=== PATIENT | female | born 1975 | race Caucasian/White ===

== ENCOUNTER 2017-05-13 20:20 | Emergency (ER) | payer MEDICAID, SELFPAY ==
[2017-05-13 20:30] VITALS: BP 169/94
[2017-05-13] MEDS ORDERED: LORazepam 2 MG/ML MDV IVPUSH ONE (21:31)
[2017-05-13] MEDS ORDERED: Sodium Chloride 0.9% 10 ML Syringe FLUSH PRN (21:32)
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
[2017-05-13] MEDS ORDERED: Potassium Bicarbonate/Cit Ac 20 MEQ Effervescent Tab PO ONE (22:04)
--- NOTE | 2017-05-14 07:01 | CR ---
Chest: Frontal view of the chest was obtained. Comparison: Prior chest x-ray of 07/13/14. Heart size and mediastinum are within normal limits. Lungs are clear. Scoliosis is present within the spine. Previous cholecystectomy is noted. Impression: 1. Incidental findings. Nothing acute is identified on frontal chest x-ray. Diagnostic code #2
--- NOTE | 2017-05-14 07:01 | CT ---
Head CT Technique: Multiple axial sections through the brain were obtained. Intravenous contrast was not utilized. Comparison: Prior head CT study of 03/06/16. Findings: Ventricles along with basal cisterns and sulci over the convexities are within normal limits for the patient's age. No abnormal parenchymal densities are seen. No evidence of intracranial hemorrhage. No midline shift or mass effect is seen. Bone window settings were reviewed which show mild mucosal thickening within the right maxillary and ethmoid sinuses. No acute calvarial abnormality is appreciated. Impression: 1. Mild sinus findings felt to be chronic. 2. No acute intracranial abnormality is identified. Diagnostic code #2 I agree with preliminary report issued by [facility] ([facility] preliminary report dictated on 05/13/17, 11:12 PM Central Time)
== END 2017-05-13 23:30 | disposition home or self-care (01) ==
LOC: JD.ED 20:20
DX: N39.0 Urinary tract infection, site not specified (principal); E87.6 Hypokalemia; E78.00 Pure hypercholesterolemia, unspecified; J45.909 Unspecified asthma, uncomplicated; F41.9 Anxiety disorder, unspecified; F32.9 Major depressive disorder, single episode, unspecified; Z79.899 Other long term (current) drug therapy; Z88.8 Allergy status to other drugs, medicaments and biological substances; Z90.49 Acquired absence of other specified parts of digestive tract; Z98.84 Bariatric surgery status; Z98.51 Tubal ligation status; Z86.2 Personal history of diseases of the blood and blood-forming organs and certain disorders involving the immune mechanism
CPT/HCPCS: 36415; 70450; 71010; 80053; 80306; 81001; 84484; 84703; 85025; 87086; 87088; 87186; 93005; 96374; 99285; A9270; G0480; J2060; J7050; 99284

== ENCOUNTER 2017-05-20 19:04 | Emergency (ER) | payer MEDICAID ==
[2017-05-20 19:13] VITALS: BP 128/87
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
[2017-05-20 19:56] LABS: ACETAMINOPHEN 0 ug/mL (10-30)
[2017-05-20] MEDS ORDERED: Ibuprofen 600 MG Tab PO ONE (21:23)
--- NOTE | 2017-05-21 10:34 | CR ---
Chest: Frontal view of the chest was obtained. Comparison: Heart size and mediastinum are normal. Lungs are clear with no acute infiltrates. Slight scoliosis is present within the spine. Impression: 1. Nothing acute is identified on frontal chest x-ray. Diagnostic code #1
== END 2017-05-20 21:30 | disposition home or self-care (01) ==
LOC: JD.ED 19:04
DX: R56.9 Unspecified convulsions (principal); F41.9 Anxiety disorder, unspecified; E78.00 Pure hypercholesterolemia, unspecified; J45.909 Unspecified asthma, uncomplicated; F32.9 Major depressive disorder, single episode, unspecified; Z90.49 Acquired absence of other specified parts of digestive tract; Z98.84 Bariatric surgery status; Z98.51 Tubal ligation status; Z79.899 Other long term (current) drug therapy; Z86.2 Personal history of diseases of the blood and blood-forming organs and certain disorders involving the immune mechanism; Z88.5 Allergy status to narcotic agent; Z88.8 Allergy status to other drugs, medicaments and biological substances
CPT/HCPCS: 36415; 36600; 71010; 80053; 80306; 81001; 81025; 82550; 82803; 83605; 83735; 83880; 84100; 84443; 84484; 85025; 85379; 85610; 85730; 93005; 99285; A9270; G0480; P9612; 99284

== ENCOUNTER 2018-10-04 09:49 | Emergency (ER) | payer MEDICAID ==
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
[2018-10-04] MEDS ORDERED: LORazepam 1 MG Tab PO ONE (11:23)
[2018-10-04 17:43] VITALS: BP 102/59
== END 2018-10-04 17:30 | disposition home or self-care (01) ==
LOC: JD.ED 09:49
DX: F41.0 Panic disorder [episodic paroxysmal anxiety] (principal); N39.0 Urinary tract infection, site not specified; Z90.49 Acquired absence of other specified parts of digestive tract; Z98.84 Bariatric surgery status; Z98.51 Tubal ligation status; Z88.5 Allergy status to narcotic agent; Z88.8 Allergy status to other drugs, medicaments and biological substances; Z79.899 Other long term (current) drug therapy
CPT/HCPCS: 36415; 80053; 80306; 81001; 84443; 85007; 85027; 87086; 99285; A9270; G0480; 87088; 87186

== ENCOUNTER 2019-02-27 07:02 | Emergency (ER) | payer MEDICAID ==
[2019-02-27] MEDS ORDERED: Sodium Chloride 0.9% 500 ML IV ONE (07:32)
[2019-02-27] MEDS ORDERED: Sodium Chloride 0.9% 10 ML Syringe FLUSH PRN (07:32)
[2019-02-27] MEDS ORDERED: HYDROmorphone 0.5 MG/0.5 ML Syringe IVPUSH ONE (07:32)
[2019-02-27] MEDS ORDERED: Acetaminophen 325 MG Tab PO ONE (07:49)
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
[2019-02-27] MEDS ORDERED: Ketorolac 30 MG/ML SDV IVPUSH SCH (08:00)
[2019-02-27] MEDS ORDERED: Acetaminophen/oxyCODONE 325-5 MG Tab PO ONE (08:47)
--- NOTE | 2019-02-27 08:53 | CT ---
CT cervical spine Technique: Multiple axial sections were obtained from above the C1 inferiorly to the bottom of T1. Reconstructed sagittal and coronal images were reviewed. Findings: Minimal disc space narrowing is noted at C6-C7. Mild anterior osteophytes are noted at C3-C4 through C6-C7. Posterior osteophytes are noted at C5-C6 and C6-C7. Small posterior soft tissue calcifications are seen within bulging discs at C5-C6 and C6-C7. Anterior soft tissue calcification is seen within the annulus of the disc at C4-C5 and C5-C6. No bony neural foraminal stenosis is seen. No bony central canal stenosis is seen. No fracture is identified. No abnormal subluxation is seen. Impression: 1. Degenerative change as described above. 2. Nothing acute is appreciated on CT study of the cervical spine. Diagnostic code #2
[2019-02-27] MEDS ORDERED: Lidocaine 1% 50 ML MDV INJECT ONE (08:54)
--- NOTE | 2019-02-27 09:02 | CR ---
Right shoulder: Three views of the right shoulder were obtained. Comparison: No previous shoulder study. No fracture, dislocation or other bony abnormality is seen. Impression: 1. No abnormality is identified on right shoulder study. Diagnostic code #1
[2019-02-27 10:32] VITALS: BP 95/51
== END 2019-02-27 10:50 | disposition home or self-care (01) ==
LOC: JD.ED 07:02
DX: G40.909 Epilepsy, unspecified, not intractable, without status epilepticus (principal); S01.512A Laceration without foreign body of oral cavity, initial encounter; S01.511A Laceration without foreign body of lip, initial encounter; S13.9XXA Sprain of joints and ligaments of unspecified parts of neck, initial encounter; Z88.5 Allergy status to narcotic agent; Z88.8 Allergy status to other drugs, medicaments and biological substances; Z86.2 Personal history of diseases of the blood and blood-forming organs and certain disorders involving the immune mechanism; Z98.890 Other specified postprocedural states; Z90.49 Acquired absence of other specified parts of digestive tract; Z98.84 Bariatric surgery status; Z98.51 Tubal ligation status; Z77.22 Contact with and (suspected) exposure to environmental tobacco smoke (acute) (chronic); X58.XXXA Exposure to other specified factors, initial encounter
CPT/HCPCS: 12011; 36415; 72125; 73030; 80053; 85025; 96361; 96374; 99285; A9270; J1885; J2001; J7040; 99284

== ENCOUNTER 2019-07-17 09:41 | Inpatient (IN) | payer MEDICAID ==
[2019-07-17] MEDS ORDERED: Sodium Chloride 0.9% 10 ML Syringe FLUSH PRN (10:06)
[2019-07-17] MEDS ORDERED: diphenhydrAMINE 50 MG/ML SDV IVPUSH ONE (10:11)
[2019-07-17] MEDS ORDERED: Sodium Chloride 0.9% 1,000 ML IV SCH (10:15)
[2019-07-17] MEDS ORDERED: LORazepam 2 MG/ML SDV IVPUSH ONE ×3 (10:26→21:29)
[2019-07-17] MEDS ORDERED: LORazepam 2 MG/ML SDV ONE ×2 (10:27→21:32)
[2019-07-17] MEDS ORDERED: Ondansetron 4 MG/2 ML SDV IVPUSH ONE ×2 (10:31→15:29)
[2019-07-17] MEDS ORDERED: HYDROmorphone 0.5 MG/0.5 ML Syringe IVPUSH ONE ×2 (10:44→15:34)
[2019-07-17] MEDS ORDERED: Iopamidol 612 MG/ML 100 ML Bottle IVPUSH ONE (10:50)
[2019-07-17] MEDS ORDERED: Sodium Chloride 0.9% 10 ML Syringe FLUSH ONE (10:50)
--- NOTE | 2019-07-17 12:12 | CT ---
CT facial bones Technique: Multiple axial sections through the facial bones were obtained. Reconstructed coronal and sagittal images were reviewed. Paranasal sinuses are clear. No facial bone fracture is identified. Numerous dental caries are noted. Impression: 1. Numerous dental caries. 2. No acute facial bone abnormality is appreciated. Diagnostic code #2
--- NOTE | 2019-07-17 12:12 | CT ---
Head CT Technique: Multiple axial sections through the brain were obtained. Intravenous contrast was not utilized. Comparison: Prior head CT study of 09/08/18. Findings: Ventricles along with basal cisterns and sulci over the convexities are within normal limits for the patient's age. No abnormal parenchymal densities are seen. Small area of increased density is seen within the posterior left parietal convexity. This shows Hounsfield unit measurements more than blood and is felt to represent small bony exostosis or small calcifying meningioma rather than hemorrhage. No other abnormal parenchymal densities are seen. No evidence of mass effect. No midline shift or mass effect is seen. Bone window settings were reviewed which show no acute calvarial abnormality. Mastoid sinuses and visualized paranasal sinuses are clear. Impression: 1. Small finding within the left posterior parietal convexity which is felt to represent calcification as described above either due to bony exostosis off the inner table or small calcifying meningioma. 2. No acute intracranial abnormality is seen. No acute calvarial abnormality is appreciated. Diagnostic code #2
[2019-07-17] MEDS ORDERED: Dextrose 5%-Lactated Ringers 1,000 ML IV SCH ×2 (12:15→15:00)
--- NOTE | 2019-07-17 12:47 | CT ---
CT chest Technique: Multiple axial sections through the chest were obtained. Intravenous contrast was utilized. Comparison: No prior chest imaging. Findings: Mediastinum and hilar region show no abnormality. No pericardial thickening is seen. No axillary adenopathy is noted. Lungs are clear with no acute parenchymal change. No discrete rib fractures seen on bone window settings. Vertebral body heights are maintained within the thoracic spine. Sagittal views of the sternum appear intact. Impression: 1. Nothing acute is appreciated on CT study of the chest. Diagnostic code #1 CT abdomen and pelvis Technique: Multiple axial sections were obtained from above the dome of the diaphragm inferiorly through the pubic symphysis. Intravenous contrast was utilized. No oral contrast was given. Comparison: No prior CT abdomen or pelvis exam is available. Findings: Prominent dilated loop of bowel in area of anastomotic sutures are seen within the left upper abdomen. Prior stomach surgery is noted. Uncertain if this dilated loop of bowel represents change from trauma from wall hemorrhage or other etiology. Increased stool seen throughout the colon. No other bowel dilatation is seen. No pelvic mass or adenopathy is noted. No free fluid is seen. Delayed images show contrast within the distal ureters and bladder. Liver contains no focal abnormality. Spleen appears normal. Kidneys show symmetric contrast enhancement without hydronephrosis or mass. There is a small cyst noted within the left kidney measuring 5 mm. Adrenal glands show no nodule. Pancreas is within normal limits. Bone window settings were reviewed which show no discrete acute osseous abnormality. Impression: 1. Prominent dilated loop of bowel in area of anastomotic sutures within the left upper abdomen. Previous stomach surgery is noted. Uncertain if this dilated loop of bowel is the result of a bowel wall hematoma or other etiology. 2. No other acute abnormality is definitely seen on CT study of the abdomen and pelvis. Diagnostic code #3
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
[2019-07-17] MEDS ORDERED: Rocuronium 50 MG/5 ML Vial ONE (18:11)
[2019-07-17] MEDS ORDERED: Ondansetron 4 MG/2 ML SDV ONE (18:11)
[2019-07-17] MEDS ORDERED: Propofol 200 MG/20 ML SDV ONE (18:11)
[2019-07-17] MEDS ORDERED: Midazolam 1 MG/ML 2 ML SDV ONE ×3 (18:12→22:57)
[2019-07-17] MEDS ORDERED: fentaNYL 250 MCG/5 ML SDV ONE ×2 (18:12→19:31)
[2019-07-17] MEDS ORDERED: Lidocaine 1% 4 ML ONE (18:12)
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
[2019-07-17] MEDS ORDERED: Bupivacaine 0.5% 30 ML SDV ONE (19:03)
[2019-07-17] MEDS ORDERED: Lactated Ringers 1,000 ML ONE ×5 (19:12→23:32)
[2019-07-17] MEDS ORDERED: Morphine 2 MG/ML Syringe IVPUSH PRN (20:55)
[2019-07-17] MEDS ORDERED: Lactated Ringers 1,000 ML IV SCH (21:00)
[2019-07-17] MEDS ORDERED: Heparin Sodium 5,000 Units/ML Vial SUBCUT SCH (21:00)
[2019-07-17] MEDS ORDERED: HYDROmorphone 0.5 MG/0.5 ML Syringe IVPUSH PRN (21:04)
--- NOTE | 2019-07-17 21:07 | PCM.POSTAN ---
POST ANESTHESIA ASSESSMENT - MENTAL STATUS Mental Status: Somnolent - VITAL SIGNS Vital Signs: Last Vital Signs Temp 36.8 C 07/17/19 11:32 Pulse 102 H 07/17/19 11:32 Resp 18 07/17/19 11:32 BP 151/98 H 07/17/19 11:32 Pulse Ox 99 07/17/19 11:32 - RESPIRATORY Respiratory Status: Respiratory Rate WNL, Airway Patent, O2 Saturation Stable, Supplemental Oxygen - CARDIOVASCULAR CV Status: Pulse Rate WNL, Blood Pressure Stable - GASTROINTESTINAL GI Status: No Symptoms - PAIN Pain Score: 0 - POST OP HYDRATION Hydration Status: Adequate & Stable - OBSERVATIONS Free Text/Narrative:: no anesthesia complications noted
--- NOTE | 2019-07-17 21:19 | PCM.PRNOTE ---
- Free Text/Narrative Note: Operative Report 07/17/2019 Diagnosis: ischemic small bowel with peritonitis Post op diagnosis: small bowel intussusception with ischemia Operation: laparotomy, small bowel resection Antibiotic: cefoxitin EBL: 200 cc Complications: none Findings:irreducible intussusception at the sia en Y anastomosis in patient with previous gastric bypass operation. The intussusceptum appeared necrotic and had perforated on handling with minimal intra-abdominal contamination. The biliary limb and alimentary limb were aligned side to side and anastomosed with a 55 mm linear stapler, and the remaining enterotomy was sewn end to end to the common limb. Detailed report: The patient was brought to the OR emergently and underwent general anesthesia. A bo catheter was placed and the abdomen was prepped and draped in sterile fashion. A midline laparotomy incision was made and the abdomen was entered safely. The small bowel appeared dilated. The small bowel was eviscerated and inspected. Intussusception of the common limb of the Sia en Y into the proximal confluence was noted; this was not safely reducible and the intussusceptum perforated on handling. A 55 mm linear stapler was used to divide the three limbs of bowel that appeared non-viable and the mesentery supplying the specimen was divided using the Ligasure. The specimen measured approximately 50 cm. The identity of the limbs was confirmed, and the biliary limb was stapled with the alimentary limb in side to side fashion, taking care to make sure the mesentery was in proper orientation. The mesenteric defect was big enough that closure was not deemed necessary. The remaining enterotomy from the staple fire was then handsewn to the opened staple line of the common limb in a single layer with interrupted vicryl suture. The bowel felt patent at all connections. The mesenteric window created with this anastomosis was closed with interrupted vicryl suture. The bowel was reduced into the abdomen and thoroughly irrigated. Fascia was closed with running 1 PDS suture and skin closed with giles. The patient tolerated the procedure well and was extubated in the OR prior to transfer to the recovery room. Brent Schmidt MD General Surgery
[2019-07-17] MEDS: fentaNYL 100 MCG/2 ML SDV IVPUSH PRN ×2 (21:26→21:36)
[2019-07-17] MEDS ORDERED: HYDROmorphone 1 MG/ML Syringe IVPUSH PRN (21:43)
[2019-07-17] MEDS: Midazolam 50 MG in Sodium Chloride 0.9% 40 ML IV SCH (21:55)
[2019-07-17] MEDS ORDERED: Midazolam 5 MG/ML 10 ML MDV ONE (22:00)
[2019-07-17] MEDS ORDERED: Sodium Chloride 0.9% 100 ML ONE (22:01)
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
[2019-07-17] MEDS: Lactated Ringers 1,000 ML IV SCH (23:56)
[2019-07-18] MEDS: metroNIDAZOLE/Normal Saline 500 MG in Premix Bag 1 BAG IV SCH ×3 (00:01→15:37)
[2019-07-18] MEDS ORDERED: fentaNYL 2,500 MCG in Sodium Chloride 0.9% 200 ML IV SCH ×3 (00:15→00:47)
[2019-07-18] MEDS ORDERED: Midazolam 1 MG/ML 2 ML SDV ONE (00:25)
[2019-07-18] MEDS: Pantoprazole 40 MG in Sodium Chloride 0.9% 100 ML IV SCH ×2 (00:29→09:29)
[2019-07-18] MEDS ORDERED: Midazolam 1 MG/ML 2 ML SDV IVPUSH ONE (00:33)
[2019-07-18] MEDS ORDERED: fentaNYL 100 MCG/2 ML SDV IVPUSH ONE (00:37)
[2019-07-18] MEDS ORDERED: Sodium Chloride 0.9% 250 ML ONE (01:32)
[2019-07-18] MEDS ORDERED: Sodium Chloride 0.9% 1,000 ML IV STA (01:53)
[2019-07-18] MEDS ORDERED: Sodium Chloride 0.9% 250 ML IV STA (01:57)
[2019-07-18] MEDS: Midazolam 50 MG in Sodium Chloride 0.9% 40 ML IV SCH (02:50)
[2019-07-18] MEDS: Lactated Ringers 1,000 ML IV SCH ×3 (06:48→22:59)
[2019-07-18] MEDS: cefTAZidime Pentahydrate 2 GM in Sodium Chloride 0.9% 50 ML IV SCH ×2 (07:08→13:40)
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
--- NOTE | 2019-07-18 07:33 | PCM.PRNOTE ---
- Free Text/Narrative Note: ENDOTRACHEAL INTUBATION Date: 07/17/19 Time: 22:40 Indication: Acute respiratory failure Attending: Kira Denise MD A time-out was completed verifying correct patient, procedure, site, positioning , and special equipment if applicable. The patient was placed in a flat position. Patient already sedated. The patient was easily ventilated using an ambu bag. The MAC 4 BLADE was used and inserted into the oropharynx at which time there was a Grade 1 view of the vocal cords. A 7.5-tanzanian endotracheal tube was inserted and visualized going through the vocal cords. The stylette was removed. Colorimetric change was visualized on the CO2 meter. Breath sounds were heard in both lung gomez equally. The endotracheal tube was placed at 23 cm, measured at the teeth. A chest x-ray was ordered to assess for pneumothorax and verify endotrachealtube placement. Estimated Blood Loss: none The patient tolerated the procedure well and there were no complications.
--- NOTE | 2019-07-18 07:33 | PCM.PRNOTE ---
- Free Text/Narrative Note: CENTRAL LINE PLACEMENT TIME AND DATE: 07/17/2019 22:40 INDICATION: Hemodynamic monitoring PROCEDURE CREDIT CARD CONTROL CLERK: Kira Denise MD CONSENT: The procedure was performed emergently and the permission was implied because of the emergent nature. PROCEDURE SUMMARY: A time-out was completed verifying correct patient, procedure, site, positioning , and special equipment. The patient was placed in a dependent position appropriate for central line placement based on the vein to be cannulated. The patients right neck was prepped and draped in sterile fashion. 1% Lidocaine was used to anesthetize the surrounding skin area. A triple lumen 9-Mongol[place] Cordis catheter was introduced into the the internal jugular using the Seldinger technique and under ultrasound guidance. The catheter was threaded smoothly over the guide wire and appropriate blood return was obtained. Each lumen of the catheter was evacuated of air and flushed with sterile saline. The catheter was then sutured in place to the skin and a sterile dressing applied. Perfusion to the extremity distal to the point of catheter insertion was checked and found to be adequate. Estimated Blood Loss: 5mL The patient tolerated the procedure well and there were no complications.
[2019-07-18] MEDS: Acetaminophen 325 MG/10.15 ML ML PO SCH ×4 (09:06→20:09)
[2019-07-18] MEDS: Chlorhexidine Gluconate 0.12% Oral Rinse 118 ML Bottle MM SCH ×2 (09:31→14:27)
--- NOTE | 2019-07-18 10:30 | PCM.SURGPN ---
- General Info Date of Service: 07/18/19 Date of Surgery/Procedure: 07/17/19 POD#: 1 Post-Op Diagnosis: small bowel intussusception Admission Diagnosis/Problem: Small bowel obstruction Functional Status: Reports: Other (intubated and sedated) - Review of Systems General: Reports: No Symptoms HEENT: Reports: No Symptoms Pulmonary: Reports: No Symptoms Cardiovascular: Reports: No Symptoms Gastrointestinal: Reports: No Symptoms Genitourinary: Reports: No Symptoms Musculoskeletal: Reports: No Symptoms Skin: Reports: No Symptoms Neurological: Reports: No Symptoms Psychiatric: Reports: No Symptoms (ROS unobtainable due to patient factors) - Patient Data Vitals - Most Recent: Last Vital Signs Temp 37.5 C 07/18/19 09:00 Pulse 112 H 07/18/19 09:00 Resp 15 07/18/19 09:00 BP 107/66 07/18/19 09:00 Pulse Ox 99 07/18/19 10:10 Weight - Most Recent: 56.245 kg I&O - Last 24 Hours: Intake & Output 07/17/19 07/18/19 07/18/19 22:59 06:59 14:59 Intake Total 900 1106 Output Total 500 425 275 Balance 400 681 -275 Lab Results Last 24 Hrs: Laboratory Results - last 24 hr 07/17/19 07/17/19 07/17/19 Range/Units 10:00 10:00 10:00 WBC 14.24 H (3.98-10.04) K/mm3 RBC 3.89 L (3.98-5.22) M/mm3 Hgb 9.5 L (11.2-15.7) gm/dl Hct 32.1 L (34.1-44.9) % MCV 82.5 D (79.4-94.8) fl MCH 24.4 L (25.6-32.2) pg MCHC 29.6 L (32.2-35.5) g/dl RDW Std Deviation 76.0 H (36.4-46.3) fL Plt Count 399 H D (182-369) K/mm3 MPV 10.6 (9.4-12.3) fl Neut % (Auto) 92.4 H (34.0-71.1) % Lymph % (Auto) 3.6 L (19.3-51.7) % Atkinson % (Auto) 3.7 L (4.7-12.5) % Eos % (Auto) 0 L (0.7-5.8) Baso % (Auto) 0.1 (0.1-1.2) % Neut # (Auto) 13.16 H (1.56-6.13) K/mm3 Lymph # (Auto) 0.51 L (1.18-3.74) K/mm3 Atkinson # (Auto) 0.53 H (0.24-0.36) K/mm3 Eos # (Auto) 0.00 L (0.04-0.36) K/mm3 Baso # (Auto) 0.01 (0.01-0.08) K/mm3 Manual Slide Review Abnormal smear Puncture Site ABG pH (7.35-7.45) ABG pCO2 (35.0-45.0) mmHg ABG pO2 (80.0-100.0) mmHg ABG HCO3 (22.0-26.0) meq/L ABG O2 Saturation (96.0-97.0) % ABG Base Excess (-2-2.0) Larry Test A-a Gradient mmHg O2 Delivery Device Oxygen Flow Rate FiO2 (21.00-100.00) % Tidal Volume cc PEEP cmH20 Pressure Support cmH2O Sodium 137 (136-145) mEq/L Potassium 4.1 (3.5-5.1) mEq/L Chloride 102 (98-107) mEq/L Carbon Dioxide 24 (21-32) mEq/L Anion Gap 15.1 H (5-15) BUN 23 H (7-18) mg/dL Creatinine 0.7 (0.55-1.02) mg/dL Est Cr Clr Drug Dosing TNP Estimated GFR (MDRD) > 60 (>60) mL/min BUN/Creatinine Ratio 32.9 H (14-18) Glucose 160 H (74-106) mg/dL Lactic Acid (0.4-2.0) mmol/L Calcium 9.0 (8.5-10.1) mg/dL Phosphorus (2.6-4.7) mg/dL Magnesium (1.8-2.4) mg/dl Total Bilirubin 0.5 (0.2-1.0) mg/dL AST 36 (15-37) U/L ALT 34 (14-59) U/L Alkaline Phosphatase 73 (46-116) U/L Troponin I (0.00-0.056) ng/mL Total Protein 7.2 (6.4-8.2) g/dl Albumin 3.8 (3.4-5.0) g/dl Globulin 3.4 gm/dL Albumin/Globulin Ratio 1.1 (1-2) HCG, Qual Negative (NEGATIVE) Urine Opiates Screen (YPFPNQ=066) Ur Buprenorphine Scrn (CUTOFF=10) Ur Oxycodone Screen (UMQ6HI=808) Urine Methadone Screen (GZNGBO=790) Ur Propoxyphene Screen (VGKIRK=467) Ur Barbiturates Screen (XVXNQC=341) Ur Tricyclics Screen (QHWCXX=671) Ur Phencyclidine Scrn (CUTOFF=25) Ur Amphetamine Screen (SOXLCQ=976) U Methamphetamines Scrn (AZVAMR=142) U Benzodiazepines Scrn (YHZNZP=896) U Cocaine Metab Screen (FURTZN=233) U Marijuana (THC) Screen (CUTOFF=50) Ethyl Alcohol 0.00 (0.00) gm% Blood Type Gel Antibody Screen Crossmatch 07/17/19 07/17/19 07/17/19 Range/Units 11:28 22:14 22:35 WBC 2.82 L (3.98-10.04) K/mm3 RBC 3.14 L (3.98-5.22) M/mm3 Hgb 7.7 L D (11.2-15.7) gm/dl Hct 26.6 L (34.1-44.9) % MCV 84.7 (79.4-94.8) fl MCH 24.5 L (25.6-32.2) pg MCHC 28.9 L (32.2-35.5) g/dl RDW Std Deviation 77.1 H (36.4-46.3) fL Plt Count 344 (182-369) K/mm3 MPV 10.2 (9.4-12.3) fl Neut % (Auto) 80.8 H (34.0-71.1) % Lymph % (Auto) 16.0 L (19.3-51.7) % Atkinson % (Auto) 2.8 L (4.7-12.5) % Eos % (Auto) 0.4 L (0.7-5.8) Baso % (Auto) 0.0 L (0.1-1.2) % Neut # (Auto) 2.28 (1.56-6.13) K/mm3 Lymph # (Auto) 0.45 L (1.18-3.74) K/mm3 Atkinson # (Auto) 0.08 L (0.24-0.36) K/mm3 Eos # (Auto) 0.01 L (0.04-0.36) K/mm3 Baso # (Auto) 0.00 L (0.01-0.08) K/mm3 Manual Slide Review Abnormal smear Puncture Site Rt radial ABG pH 7.32 L (7.35-7.45) ABG pCO2 48.7 H (35.0-45.0) mmHg ABG pO2 163.0 H* (80.0-100.0) mmHg ABG HCO3 24.1 (22.0-26.0) meq/L ABG O2 Saturation 98.2 H (96.0-97.0) % ABG Base Excess -1.5 (-2-2.0) Larry Test Positive A-a Gradient mmHg O2 Delivery Device Ventilator Oxygen Flow Rate FiO2 0.00 L (21.00-100.00) % Tidal Volume 450.0 cc PEEP 5.0 cmH20 Pressure Support 0.0 cmH2O Sodium (136-145) mEq/L Potassium (3.5-5.1) mEq/L Chloride (98-107) mEq/L Carbon Dioxide (21-32) mEq/L Anion Gap (5-15) BUN (7-18) mg/dL Creatinine (0.55-1.02) mg/dL Est Cr Clr Drug Dosing Estimated GFR (MDRD) (>60) mL/min BUN/Creatinine Ratio (14-18) Glucose (74-106) mg/dL Lactic Acid (0.4-2.0) mmol/L Calcium (8.5-10.1) mg/dL Phosphorus (2.6-4.7) mg/dL Magnesium (1.8-2.4) mg/dl Total Bilirubin (0.2-1.0) mg/dL AST (15-37) U/L ALT (14-59) U/L Alkaline Phosphatase (46-116) U/L Troponin I (0.00-0.056) ng/mL Total Protein (6.4-8.2) g/dl Albumin (3.4-5.0) g/dl Globulin gm/dL Albumin/Globulin Ratio (1-2) HCG, Qual (NEGATIVE) Urine Opiates Screen Negative (UEKIBE=176) Ur Buprenorphine Scrn Negative (CUTOFF=10) Ur Oxycodone Screen Negative (RZS1NG=124) Urine Methadone Screen Negative (XUMPWV=400) Ur Propoxyphene Screen Negative (FEUMPH=695) Ur Barbiturates Screen Negative (ZDMWZC=895) Ur Tricyclics Screen Presumptive positive H (JNWIEL=825) Ur Phencyclidine Scrn Negative (CUTOFF=25) Ur Amphetamine Screen Presumptive positive H (MGUEYK=565) U Methamphetamines Scrn Presumptive positive H (BHOMZU=267) U Benzodiazepines Scrn Negative (WPWEFA=299) U Cocaine Metab Screen Negative (HGITHX=089) U Marijuana (THC) Screen Negative (CUTOFF=50) Ethyl Alcohol (0.00) gm% Blood Type Gel Antibody Screen Crossmatch 07/17/19 07/17/19 07/17/19 Range/Units 22:35 22:35 22:35 WBC (3.98-10.04) K/mm3 RBC (3.98-5.22) M/mm3 Hgb (11.2-15.7) gm/dl Hct (34.1-44.9) % MCV (79.4-94.8) fl MCH (25.6-32.2) pg MCHC (32.2-35.5) g/dl RDW Std Deviation (36.4-46.3) fL Plt Count (182-369) K/mm3 MPV (9.4-12.3) fl Neut % (Auto) (34.0-71.1) % Lymph % (Auto) (19.3-51.7) % Atkinson % (Auto) (4.7-12.5) % Eos % (Auto) (0.7-5.8) Baso % (Auto) (0.1-1.2) % Neut # (Auto) (1.56-6.13) K/mm3 Lymph # (Auto) (1.18-3.74) K/mm3 Atkinson # (Auto) (0.24-0.36) K/mm3 Eos # (Auto) (0.04-0.36) K/mm3 Baso # (Auto) (0.01-0.08) K/mm3 Manual Slide Review Puncture Site ABG pH (7.35-7.45) ABG pCO2 (35.0-45.0) mmHg ABG pO2 (80.0-100.0) mmHg ABG HCO3 (22.0-26.0) meq/L ABG O2 Saturation (96.0-97.0) % ABG Base Excess (-2-2.0) Larry Test A-a Gradient mmHg O2 Delivery Device Oxygen Flow Rate FiO2 (21.00-100.00) % Tidal Volume cc PEEP cmH20 Pressure Support cmH2O Sodium 137 (136-145) mEq/L Potassium 4.2 (3.5-5.1) mEq/L Chloride 106 (98-107) mEq/L Carbon Dioxide 26 (21-32) mEq/L Anion Gap 9.2 (5-15) BUN 14 (7-18) mg/dL Creatinine 0.5 L (0.55-1.02) mg/dL Est Cr Clr Drug Dosing 127.49 Estimated GFR (MDRD) > 60 (>60) mL/min BUN/Creatinine Ratio 28.0 H (14-18) Glucose 141 H (74-106) mg/dL Lactic Acid 2.0 (0.4-2.0) mmol/L Calcium 7.8 L (8.5-10.1) mg/dL Phosphorus 3.8 (2.6-4.7) mg/dL Magnesium 1.3 L (1.8-2.4) mg/dl Total Bilirubin 0.5 (0.2-1.0) mg/dL AST 61 H (15-37) U/L ALT 40 (14-59) U/L Alkaline Phosphatase 47 (46-116) U/L Troponin I < 0.017 (0.00-0.056) ng/mL Total Protein 4.7 L (6.4-8.2) g/dl Albumin 2.4 L (3.4-5.0) g/dl Globulin 2.3 gm/dL Albumin/Globulin Ratio 1.0 (1-2) HCG, Qual (NEGATIVE) Urine Opiates Screen (WPBYAQ=296) Ur Buprenorphine Scrn (CUTOFF=10) Ur Oxycodone Screen (YHU1UK=438) Urine Methadone Screen (PBUIWZ=261) Ur Propoxyphene Screen (KAGKFV=659) Ur Barbiturates Screen (MXBLKJ=324) Ur Tricyclics Screen (ZHTCMN=607) Ur Phencyclidine Scrn (CUTOFF=25) Ur Amphetamine Screen (GLMVAA=268) U Methamphetamines Scrn (RINNXZ=316) U Benzodiazepines Scrn (GSVMJT=371) U Cocaine Metab Screen (OLYNDG=882) U Marijuana (THC) Screen (CUTOFF=50) Ethyl Alcohol (0.00) gm% Blood Type O POSITIVE Gel Antibody Screen Negative Crossmatch See Detail 07/18/19 07/18/19 07/18/19 Range/Units 07:38 07:38 07:38 WBC 6.32 (3.98-10.04) K/mm3 RBC 3.64 L (3.98-5.22) M/mm3 Hgb 9.5 L D (11.2-15.7) gm/dl Hct 30.9 L (34.1-44.9) % MCV 84.9 (79.4-94.8) fl MCH 26.1 (25.6-32.2) pg MCHC 30.7 L (32.2-35.5) g/dl RDW Std Deviation 69.9 H (36.4-46.3) fL Plt Count 240 D (182-369) K/mm3 MPV 10.1 (9.4-12.3) fl Neut % (Auto) 89.5 H (34.0-71.1) % Lymph % (Auto) 6.3 L (19.3-51.7) % Atkinson % (Auto) 4.0 L (4.7-12.5) % Eos % (Auto) 0 L (0.7-5.8) Baso % (Auto) 0.0 L (0.1-1.2) % Neut # (Auto) 5.66 (1.56-6.13) K/mm3 Lymph # (Auto) 0.40 L (1.18-3.74) K/mm3 Atkinson # (Auto) 0.25 (0.24-0.36) K/mm3 Eos # (Auto) 0.00 L (0.04-0.36) K/mm3 Baso # (Auto) 0.00 L (0.01-0.08) K/mm3 Manual Slide Review Abnormal smear Puncture Site ABG pH (7.35-7.45) ABG pCO2 (35.0-45.0) mmHg ABG pO2 (80.0-100.0) mmHg ABG HCO3 (22.0-26.0) meq/L ABG O2 Saturation (96.0-97.0) % ABG Base Excess (-2-2.0) Larry Test A-a Gradient mmHg O2 Delivery Device Oxygen Flow Rate FiO2 (21.00-100.00) % Tidal Volume cc PEEP cmH20 Pressure Support cmH2O Sodium 138 (136-145) mEq/L Potassium 3.7 (3.5-5.1) mEq/L Chloride 106 (98-107) mEq/L Carbon Dioxide 27 (21-32) mEq/L Anion Gap 8.7 (5-15) BUN 11 (7-18) mg/dL Creatinine 0.5 L (0.55-1.02) mg/dL Est Cr Clr Drug Dosing 127.49 Estimated GFR (MDRD) > 60 (>60) mL/min BUN/Creatinine Ratio 22.0 H (14-18) Glucose 100 (74-106) mg/dL Lactic Acid 0.9 (0.4-2.0) mmol/L Calcium 7.6 L (8.5-10.1) mg/dL Phosphorus (2.6-4.7) mg/dL Magnesium (1.8-2.4) mg/dl Total Bilirubin 2.7 H (0.2-1.0) mg/dL AST 61 H (15-37) U/L ALT 64 H (14-59) U/L Alkaline Phosphatase 46 (46-116) U/L Troponin I (0.00-0.056) ng/mL Total Protein 4.8 L (6.4-8.2) g/dl Albumin 2.2 L (3.4-5.0) g/dl Globulin 2.6 gm/dL Albumin/Globulin Ratio 0.9 L (1-2) HCG, Qual (NEGATIVE) Urine Opiates Screen (FLIKTY=132) Ur Buprenorphine Scrn (CUTOFF=10) Ur Oxycodone Screen (GYR0HG=186) Urine Methadone Screen (DWMEDE=512) Ur Propoxyphene Screen (PWQNCD=286) Ur Barbiturates Screen (GHXBIF=441) Ur Tricyclics Screen (VMPAJZ=969) Ur Phencyclidine Scrn (CUTOFF=25) Ur Amphetamine Screen (HZVRSE=824) U Methamphetamines Scrn (OFUNDB=096) U Benzodiazepines Scrn (FQSDZY=468) U Cocaine Metab Screen (KJMBRY=927) U Marijuana (THC) Screen (CUTOFF=50) Ethyl Alcohol (0.00) gm% Blood Type Gel Antibody Screen Crossmatch 07/18/19 Range/Units 08:00 WBC (3.98-10.04) K/mm3 RBC (3.98-5.22) M/mm3 Hgb (11.2-15.7) gm/dl Hct (34.1-44.9) % MCV (79.4-94.8) fl MCH (25.6-32.2) pg MCHC (32.2-35.5) g/dl RDW Std Deviation (36.4-46.3) fL Plt Count (182-369) K/mm3 MPV (9.4-12.3) fl Neut % (Auto) (34.0-71.1) % Lymph % (Auto) (19.3-51.7) % Atkinson % (Auto) (4.7-12.5) % Eos % (Auto) (0.7-5.8) Baso % (Auto) (0.1-1.2) % Neut # (Auto) (1.56-6.13) K/mm3 Lymph # (Auto) (1.18-3.74) K/mm3 Atkinson # (Auto) (0.24-0.36) K/mm3 Eos # (Auto) (0.04-0.36) K/mm3 Baso # (Auto) (0.01-0.08) K/mm3 Manual Slide Review Puncture Site Rt radial ABG pH 7.42 (7.35-7.45) ABG pCO2 39.9 (35.0-45.0) mmHg ABG pO2 159.0 H* (80.0-100.0) mmHg ABG HCO3 25.2 (22.0-26.0) meq/L ABG O2 Saturation 95.9 L (96.0-97.0) % ABG Base Excess 1.2 (-2-2.0) Larry Test Positive A-a Gradient 77 mmHg O2 Delivery Device Ventilator Oxygen Flow Rate 0.0 FiO2 40.00 (21.00-100.00) % Tidal Volume 450.0 cc PEEP 5.0 cmH20 Pressure Support cmH2O Sodium (136-145) mEq/L Potassium (3.5-5.1) mEq/L Chloride (98-107) mEq/L Carbon Dioxide (21-32) mEq/L Anion Gap (5-15) BUN (7-18) mg/dL Creatinine (0.55-1.02) mg/dL Est Cr Clr Drug Dosing Estimated GFR (MDRD) (>60) mL/min BUN/Creatinine Ratio (14-18) Glucose (74-106) mg/dL Lactic Acid (0.4-2.0) mmol/L Calcium (8.5-10.1) mg/dL Phosphorus (2.6-4.7) mg/dL Magnesium (1.8-2.4) mg/dl Total Bilirubin (0.2-1.0) mg/dL AST (15-37) U/L ALT (14-59) U/L Alkaline Phosphatase (46-116) U/L Troponin I (0.00-0.056) ng/mL Total Protein (6.4-8.2) g/dl Albumin (3.4-5.0) g/dl Globulin gm/dL Albumin/Globulin Ratio (1-2) HCG, Qual (NEGATIVE) Urine Opiates Screen (MNGLFY=414) Ur Buprenorphine Scrn (CUTOFF=10) Ur Oxycodone Screen (GJF3IK=068) Urine Methadone Screen (SEKEJN=085) Ur Propoxyphene Screen (NMQEZU=691) Ur Barbiturates Screen (AVMBIR=835) Ur Tricyclics Screen (FJISNL=836) Ur Phencyclidine Scrn (CUTOFF=25) Ur Amphetamine Screen (JNDZGL=563) U Methamphetamines Scrn (UWKOJK=371) U Benzodiazepines Scrn (VVJTKP=006) U Cocaine Metab Screen (MGBSSU=894) U Marijuana (THC) Screen (CUTOFF=50) Ethyl Alcohol (0.00) gm% Blood Type Gel Antibody Screen Crossmatch Med Orders - Current: Current Medications Acetaminophen (Tylenol) 975 mg PO Q8H BRANDT Last Admin: 07/18/19 09:09 Dose: Not Given Chlorhexidine Gluconate (Chlorhexidine Gluconate 0.12% Rinse) 5 ml MM TID BRANDT Last Admin: 07/18/19 09:31 Dose: 5 ml Diphenhydramine HCl (Benadryl) 25 mg IVPUSH Q6H PRN PRN Reason: Itching Fentanyl (Sublimaze) 50 mcg IVPUSH Q5M PRN PRN Reason: Pain Last Admin: 07/17/19 21:36 Dose: 50 mcg Hydromorphone HCl (Dilaudid) 0.5 mg IVPUSH Q10M PRN PRN Reason: Pain (severe 7-10) Last Admin: 07/17/19 21:28 Dose: 0.5 mg Hydromorphone HCl (Dilaudid) 1 mg IVPUSH Q1H PRN PRN Reason: Pain (severe 7-10) Sodium Chloride (Normal Saline) 1,000 mls @ 999 mls/hr IV ONETIME BRANDT Last Admin: 07/17/19 10:16 Dose: 999 mls/hr Dextrose/Lactated Ringer's (Dextrose 5%-Lactated Ringers) 1,000 mls @ 999 mls/ hr IV ASDIRECTED [facility] Last Admin: 07/17/19 12:23 Dose: 999 mls/hr Dextrose/Lactated Ringer's (Dextrose 5%-Lactated Ringers) 1,000 mls @ 150 mls/ hr IV ASDIRECTED [facility] Last Admin: 07/17/19 16:00 Dose: 150 mls/hr Lactated Ringer's (Ringers, Lactated) 1,000 mls @ 125 mls/hr IV ASDIRECTED [facility] Last Infusion: 07/18/19 07:14 Dose: 250 mls/hr Ceftazidime 2 gm/ Sodium (Chloride) 50 mls @ 100 mls/hr IV Q8HR BRANDT Last Admin: 07/18/19 07:08 Dose: 100 mls/hr Metronidazole 500 mg/ Premix 100 mls @ 100 mls/hr IV Q8H BRANDT Last Admin: 07/18/19 09:25 Dose: 100 mls/hr Midazolam HCl 50 mg/ Sodium (Chloride) 50 mls @ 3 mls/hr IV TITRATE BRANDT; Protocol Last Titration: 07/18/19 07:52 Dose: 6 mg/hr, 6 mls/hr Fentanyl 2,500 mcg/ Sodium (Chloride) 250 mls @ 2.5 mls/hr IV TITRATE BRANDT; Protocol Last Titration: 07/18/19 07:35 Dose: 90 mcg/hr, 9 mls/hr Propofol (Diprivan 100 Ml) 100 mls @ 3.36 mls/hr IV TITRATE BRANDT; Protocol Last Admin: 07/18/19 05:28 Dose: 10 mcg/kg/min, 3.36 mls/hr Pantoprazole Sodium 40 mg/ (Sodium Chloride) 100 mls @ 200 mls/hr IV DAILY@ 2100 BRANDT Lorazepam (Ativan) 1 mg IVPUSH Q4H PRN PRN Reason: Agitation Oxycodone HCl (Oxycodone) 5 mg PO Q4H PRN PRN Reason: Pain (moderate 4-6) Sodium Chloride (Saline Flush) 10 ml FLUSH ASDIRECTED PRN PRN Reason: Keep Vein Open Last Admin: 07/17/19 10:16 Dose: 10 ml Discontinued Medications Bupivacaine HCl (Marcaine 0.5%) Confirm Administered Dose 30 ml .ROUTE .STK-MED ONE Stop: 07/17/19 19:04 Diphenhydramine HCl (Benadryl) 25 mg IVPUSH ONETIME ONE Stop: 07/17/19 10:12 Last Admin: 07/17/19 10:16 Dose: 25 mg Fentanyl (Sublimaze) Confirm Administered Dose 250 mcg .ROUTE .STK-MED ONE Stop: 07/17/19 18:13 Fentanyl (Sublimaze) Confirm Administered Dose 250 mcg .ROUTE .STK-MED ONE Stop: 07/17/19 19:32 Fentanyl (Sublimaze) 25 mcg IVPUSH ONETIME ONE Stop: 07/18/19 00:38 Last Admin: 07/18/19 00:40 Dose: 25 mcg Heparin Sodium (Porcine) (Heparin Sodium) 5,000 units SUBCUT Q8H BRANDT Last Admin: 07/18/19 09:42 Dose: Not Given Hydromorphone HCl (Dilaudid) 0.5 mg IVPUSH ONETIME ONE Stop: 07/17/19 10:45 Last Admin: 07/17/19 11:00 Dose: 0.5 mg Hydromorphone HCl (Dilaudid) 0.5 mg IVPUSH ONETIME ONE Stop: 07/17/19 15:35 Last Admin: 07/17/19 15:40 Dose: 0.5 mg Lidocaine HCl (Xylocaine-Mpf 1%) Confirm Administered Dose 4 mls @ as directed .ROUTE .[facility] ONE Stop: 07/17/19 18:13 Cefoxitin Sodium (Mefoxin In Dextrose,Iso-Osm 2 Gm/50 Ml) Confirm Administered Dose 50 mls @ as directed .ROUTE .[facility] ONE Stop: 07/17/19 19:03 Lactated Ringer's (Ringers, Lactated) Confirm Administered Dose 1,000 mls @ as directed .ROUTE .[facility] ONE Stop: 07/17/19 19:13 Lactated Ringer's (Ringers, Lactated) Confirm Administered Dose 1,000 mls @ as directed .ROUTE .[facility] ONE Stop: 07/17/19 19:28 Lactated Ringer's (Ringers, Lactated) Confirm Administered Dose 1,000 mls @ as directed .ROUTE .[facility] ONE Stop: 07/17/19 20:09 Lactated Ringer's (Ringers, Lactated) Confirm Administered Dose 1,000 mls @ as directed .ROUTE .[facility] ONE Stop: 07/17/19 20:46 Lactated Ringer's (Ringers, Lactated) 1,000 mls @ 100 mls/hr IV ASDIRECTED BRANDT Sodium Chloride (Normal Saline) Confirm Administered Dose 100 mls @ as directed .ROUTE .[facility] ONE Stop: 07/17/19 22:02 Last Admin: 07/18/19 01:51 Dose: Not Given Lactated Ringer's (Ringers, Lactated) Confirm Administered Dose 1,000 mls @ as directed .ROUTE .[facility] ONE Stop: 07/17/19 23:33 Last Admin: 07/18/19 01:52 Dose: Not Given Pantoprazole Sodium 40 mg/ (Sodium Chloride) 100 mls @ 200 mls/hr IV DAILY BRANDT Last Admin: 07/18/19 09:29 Dose: Not Given Fentanyl 2,500 mcg/ Sodium (Chloride) 250 mls @ 140.61 mls/hr IV TITRATE BRANDT; Protocol Fentanyl 2,500 mcg/ Sodium (Chloride) 250 mls @ 2.5 mls/hr IV TITRATE BRANDT; Protocol Sodium Chloride (Normal Saline) Confirm Administered Dose 250 mls @ as directed .ROUTE .STK-MED ONE Stop: 07/18/19 01:33 Last Admin: 07/18/19 01:51 Dose: Not Given Sodium Chloride (Normal Saline) 1,000 mls @ 50 mls/hr IV NOW STA Stop: 07/18/19 21:52 Last Admin: 07/18/19 01:58 Dose: Not Given Sodium Chloride (Normal Saline) 250 mls @ 50 mls/hr IV NOW STA Stop: 07/18/19 06:56 Last Admin: 07/18/19 02:00 Dose: 50 mls/hr Iopamidol (Isovue-300 (61%)) 100 ml IVPUSH ONETIME ONE Stop: 07/17/19 10:51 Last Admin: 07/17/19 11:33 Dose: 100 ml Lorazepam (Ativan) 1 mg IVPUSH ONETIME ONE Stop: 07/17/19 10:27 Last Admin: 07/17/19 10:30 Dose: 1 mg Lorazepam (Ativan) Confirm Administered Dose 2 mg .ROUTE .STK-MED ONE Stop: 07/17/19 10:28 Last Admin: 07/17/19 15:52 Dose: Not Given Lorazepam (Ativan) 1 mg IVPUSH ONETIME ONE Stop: 07/17/19 10:45 Last Admin: 07/17/19 10:46 Dose: 1 mg Lorazepam (Ativan) Confirm Administered Dose 2 mg .ROUTE .STK-MED ONE Stop: 07/17/19 21:33 Last Admin: 07/17/19 23:53 Dose: Not Given Lorazepam (Ativan) 2 mg IVPUSH ONETIME ONE Stop: 07/17/19 21:30 Last Admin: 07/17/19 21:33 Dose: 2 mg Midazolam HCl (Versed 1 Mg/Ml) Confirm Administered Dose 2 mg .ROUTE .STK-MED ONE Stop: 07/17/19 18:13 Midazolam HCl (Versed 5 Mg/Ml) Confirm Administered Dose 50 mg .ROUTE .STK-MED ONE Stop: 07/17/19 22:01 Last Admin: 07/17/19 23:27 Dose: 50 mg Midazolam HCl (Versed 1 Mg/Ml) Confirm Administered Dose 2 mg .ROUTE .STK-MED ONE Stop: 07/17/19 22:22 Last Admin: 07/17/19 23:28 Dose: 2 mg Midazolam HCl (Versed 1 Mg/Ml) Confirm Administered Dose 2 mg .ROUTE .STK-MED ONE Stop: 07/17/19 22:58 Last Admin: 07/17/19 23:28 Dose: 2 mg Midazolam HCl (Versed 1 Mg/Ml) 2 mg IVPUSH ONETIME ONE Stop: 07/18/19 00:34 Last Admin: 07/18/19 00:35 Dose: 2 mg Morphine Sulfate (Morphine) 1 mg IVPUSH Q4H PRN PRN Reason: Pain (severe 7-10) Ondansetron HCl (Zofran) 4 mg IVPUSH ONETIME ONE Stop: 07/17/19 10:32 Last Admin: 07/17/19 10:31 Dose: 4 mg Ondansetron HCl (Zofran) 4 mg IVPUSH ONETIME ONE Stop: 07/17/19 15:30 Last Admin: 07/17/19 15:34 Dose: 4 mg Ondansetron HCl (Zofran) Confirm Administered Dose 4 mg .ROUTE .STK-MED ONE Stop: 07/17/19 18:12 Propofol (Diprivan 20 Ml) Confirm Administered Dose 200 mg .ROUTE .STK-MED ONE Stop: 07/17/19 18:12 Rocuronium [place] (Zemuron) Confirm Administered Dose 50 mg .ROUTE .STK-MED ONE Stop: 07/17/19 18:12 Sodium Chloride (Saline Flush) 10 ml FLUSH ONETIME ONE Stop: 07/17/19 10:51 Last Admin: 07/17/19 11:33 Dose: 10 ml - Exam Wound/Incisions: Dressing Dry and Intact Quality Assessment: DVT Prophylaxis General: Sedated Neck: Trachea Midline Lungs: Clear to Auscultation Cardiovascular: Regular Rate GI/Abdominal Exam: Soft Extremities: Normal Inspection Skin: Warm Neurological: No New Focal Deficit (intubated, with new right IJ CVC placed) - Problem List Review Problem List Initiated/Reviewed/Updated: Yes - My Orders Last 24 Hours: Active Orders 24 hr Category Date Time Status Admission Status [Patient Status] [ADT] Routine ADT 07/17/19 17:59 Active Patient Status [ADT] Routine ADT 07/17/19 20:55 Active Activity as Tolerated [RC] .Routine Care 07/17/19 20:55 Active Antiembolic Devices [RC] Care 07/17/19 23:48 Active Communication Order [RC] ROUTINE Care 07/17/19 21:04 Active Cooling Warming Measures [RC] ASDIRECTED Care 07/17/19 21:04 Active Gastrointestinal Tube Mgmt [RC] Q4HR Care 07/17/19 20:59 Active Head of Bed Elevation [RC] ASDIRECTED Care 07/17/19 23:49 Active Notify Provider [RC] ASDIRECTED Care 07/17/19 21:04 Active Oxygen Therapy [RC] PRN Care 07/17/19 20:55 Active Pulse Oximetry [RC] ASDIRECTED Care 07/17/19 21:04 Active RASS Sedation Scale [RC] ASDIRECTED Care 07/18/19 05:17 Active RT Arterial Blood Gases, ABG [RC] AMPROC Care 07/18/19 07:13 Active RT Incentive Spirometry [RC] Q1HWA Care 07/17/19 20:55 Active RT Suction Artificial Airway [RC] ASDIRECTED Care 07/17/19 23:51 Active RT Ventilator, Adult [RC] ASDIRECTED Care 07/17/19 23:05 Active Urinary Catheter Removal [RC] Per Unit Routine Care 07/17/19 20:59 Active Vital Signs [RC] Q1HR Care 07/17/19 20:55 Active CXR [Chest 1V Frontal] [CR] Routine Exams 07/17/19 21:58 Taken CXR [Chest 1V Frontal] [CR] Routine Exams 07/17/19 23:12 Taken Acetaminophen [Tylenol] Med 07/17/19 21:00 Active 975 mg PO Q8H Chlorhexidine Gluconate [Chlorhexidine Gluconate 0.12% Med 07/18/19 09:00 Active Rinse] 5 ml MM TID Dextrose 5%-Lactated Ringers 1,000 ml Med 07/17/19 12:15 Active IV ASDIRECTED Dextrose 5%-Lactated Ringers 1,000 ml Med 07/17/19 15:00 Active IV ASDIRECTED HYDROmorphone [Dilaudid] Med 07/17/19 21:04 Active 0.5 mg IVPUSH Q10M PRN HYDROmorphone [Dilaudid] Med 07/17/19 21:43 Active 1 mg IVPUSH Q1H PRN LORazepam [Ativan] Med 07/17/19 21:45 Active 1 mg IVPUSH Q4H PRN Lactated Ringers [Ringers, Lactated] 1,000 ml Med 07/17/19 23:45 Active IV ASDIRECTED Midazolam [Versed 5 MG/ML] 50 mg Med 07/18/19 00:45 Active Sodium Chloride 0.9% [Normal Saline] 40 ml IV TITRATE Pantoprazole [ProTONIX IV] 40 mg Med 07/18/19 21:00 Active Sodium Chloride 0.9% [Normal Saline] 100 ml IV DAILY@2100 Propofol [Diprivan 100 ML] 100 ml Med 07/18/19 05:30 Active IV TITRATE Sodium Chloride 0.9% [Normal Saline] 1,000 ml Med 07/17/19 10:15 Active IV ONETIME Sodium Chloride 0.9% [Saline Flush] Med 07/17/19 10:06 Active 10 ml FLUSH ASDIRECTED PRN cefTAZidime Pentahydrate [Fortaz] 2 gm Med 07/18/19 06:00 Active Sodium Chloride 0.9% [Normal Saline] 50 ml IV Q8HR diphenhydrAMINE [Benadryl] Med 07/17/19 21:04 Active 25 mg IVPUSH Q6H PRN fentaNYL [Sublimaze] Med 07/17/19 21:04 Active 50 mcg IVPUSH Q5M PRN fentaNYL [Sublimaze] 2,500 mcg Med 07/18/19 00:47 Active Sodium Chloride 0.9% [Normal Saline] 200 ml IV TITRATE metroNIDAZOLE/Normal Saline [Flagyl 500 MG in NS 100 ML Med 07/18/19 00:00 Active ] 500 mg Premix Bag 1 bag IV Q8H oxyCODONE Med 07/17/19 20:55 Active 5 mg PO Q4H PRN Desired Level of Sedation (RASS) [AST] Click To Edit Ot 07/18/19 05:17 Ordered Nasogastric Orogastric Tube Insertion [OM.PC] Routine Oth 07/17/19 23:51 Ordered Peripheral IV Insertion Adult [OM.PC] Stat Ot 07/17/19 10:07 Ordered RT Suction Oropharyngeal [RESPCARE] Routine Oth 07/17/19 23:51 Ordered SCD [Sequential Compression Device] [OM.PC] Routine Oth 07/17/19 23:47 Ordered Schedule Procedure [COMM] Routine Oth 07/17/19 18:01 Ordered Sequential Compression Device [OM.PC] Routine Oth 07/17/19 20:55 Ordered Transfuse PRBC [Transfuse Red Blood Cells] [COMM] Stat Oth 07/17/19 23:45 Ordered Resuscitation Status Routine Resus Stat 07/17/19 20:55 Ordered Medication Orders Acetaminophen (Tylenol) 975 mg PO Q8H [facility] Last Admin: 07/18/19 09:09 Dose: Admin: 07/18/19 09:06 Dose: Chlorhexidine Gluconate (Chlorhexidine Gluconate 0.12% Rinse) 5 ml MM TID BRANDT Last Admin: 07/18/19 09:31 Dose: 5 ml Diphenhydramine HCl (Benadryl) 25 mg IVPUSH Q6H PRN PRN Reason: Itching Fentanyl (Sublimaze) 50 mcg IVPUSH Q5M PRN PRN Reason: Pain Last Admin: 07/17/19 21:36 Dose: 50 mcg Admin: 07/17/19 21:26 Dose: 50 mcg Hydromorphone HCl (Dilaudid) 0.5 mg IVPUSH Q10M PRN PRN Reason: Pain (severe 7-10) Last Admin: 07/17/19 21:28 Dose: 0.5 mg Hydromorphone HCl (Dilaudid) 1 mg IVPUSH Q1H PRN PRN Reason: Pain (severe 7-10) Sodium Chloride (Normal Saline) 1,000 mls @ 999 mls/hr IV ONETIME [facility] Last Admin: 07/17/19 10:16 Dose: 999 mls/hr Dextrose/Lactated Ringer's (Dextrose 5%-Lactated Ringers) 1,000 mls @ 999 mls/ hr IV ASDIRECTED [facility] Last Admin: 07/17/19 12:23 Dose: 999 mls/hr Dextrose/Lactated Ringer's (Dextrose 5%-Lactated Ringers) 1,000 mls @ 150 mls/ hr IV ASDIRECTED [facility] Last Admin: 07/17/19 16:00 Dose: 150 mls/hr Lactated Ringer's (Ringers, Lactated) 1,000 mls @ 125 mls/hr IV ASDIRECTED [facility] Last Infusion: 07/18/19 07:14 Dose: 250 mls/hr Admin: 07/18/19 06:48 Dose: 150 mls/hr Infusion: 07/18/19 06:48 Dose: 150 mls/hr Infusion: 07/18/19 06:43 Dose: 150 mls/hr Admin: 07/17/19 23:56 Dose: 125 mls/hr Ceftazidime 2 gm/ Sodium (Chloride) 50 mls @ 100 mls/hr IV Q8HR [facility] Last Admin: 07/18/19 07:08 Dose: 100 mls/hr Metronidazole 500 mg/ Premix 100 mls @ 100 mls/hr IV Q8H [facility] Last Admin: 07/18/19 09:25 Dose: 100 mls/hr Infusion: 07/18/19 01:01 Dose: 100 mls/hr Admin: 07/18/19 00:01 Dose: 100 mls/hr Midazolam HCl 50 mg/ Sodium (Chloride) 50 mls @ 3 mls/hr IV TITRATE [facility]; Protocol Last Titration: 07/18/19 07:52 Dose: 6 mg/hr, 6 mls/hr Titration: 07/18/19 05:59 Dose: 5 mg/hr, 5 mls/hr Titration: 07/18/19 04:51 Dose: 6 mg/hr, 6 mls/hr Admin: 07/18/19 02:50 Dose: 5 mg/hr, 5 mls/hr Titration: 07/18/19 02:50 Dose: 5 mg/hr, 5 mls/hr Titration: 07/18/19 01:46 Dose: 5 mg/hr, 5 mls/hr Admin: 07/17/19 21:55 Dose: 3 mg/hr, 3 mls/hr Fentanyl 2,500 mcg/ Sodium (Chloride) 250 mls @ 2.5 mls/hr IV TITRATE [facility]; Protocol Last Titration: 07/18/19 07:35 Dose: 90 mcg/hr, 9 mls/hr Titration: 07/18/19 04:51 Dose: 80 mcg/hr, 8 mls/hr Titration: 07/18/19 04:15 Dose: 75 mcg/hr, 7.5 mls/hr Titration: 07/18/19 04:11 Dose: 60 mcg/hr, 6 mls/hr Titration: 07/18/19 03:29 Dose: 50 mcg/hr, 5 mls/hr Titration: 07/18/19 03:15 Dose: 40 mcg/hr, 4 mls/hr Titration: 07/18/19 03:02 Dose: 35 mcg/hr, 3.5 mls/hr Titration: 07/18/19 02:00 Dose: 30 mcg/hr, 3 mls/hr Admin: 07/18/19 01:44 Dose: 25 mcg/hr, 2.5 mls/hr Propofol (Diprivan 100 Ml) 100 mls @ 3.36 mls/hr IV TITRATE [facility]; Protocol Last Admin: 07/18/19 05:28 Dose: 10 mcg/kg/min, 3.36 mls/hr Pantoprazole Sodium 40 mg/ (Sodium Chloride) 100 mls @ 200 mls/hr IV DAILY@ 2100 [facility] Lorazepam (Ativan) 1 mg IVPUSH Q4H PRN PRN Reason: Agitation Oxycodone HCl (Oxycodone) 5 mg PO Q4H PRN PRN Reason: Pain (moderate 4-6) Sodium Chloride (Saline Flush) 10 ml FLUSH ASDIRECTED PRN PRN Reason: Keep Vein Open Last Admin: 07/17/19 10:16 Dose: 10 ml - Assessment Assessment (Free Text/Narrative):: Respiratory depression likely related to overmedication with narcotics and benzodiazepine due to post-operative severe agitation. Resulted in a code called in the recovery room, at which time the patient was intubated and a central line was placed. Her oxygenation and ventilation have been satisfactory overnight, and she continues to make urine and has required no pressor support. She has been placed on a versed, fentanyl and propofol infusion by the consulting hospitalist. She was transfused 2 u pRBC overnight for post-op Hgb 7.7, with appropriate response based on the morning labs. I believe the patient should extubate very soon as she is weaned off sedation. - Plan Plan (Free Text/Narrative):: Wean sedation, goal of extubation if patient is alert and cooperative and breathing adequately on minimal ventilatory support. Continue ICU care. -NPO, NG tube to low intermittent suction -continue bo catheter for monitoring of output in a critically ill patient -continue IVF @ 100 cc/hr -receiving antibiotics, would plan to stop course within 48 hrs -heparin SC 5000 u -will discontinue central line following extubation -Social work consult
--- NOTE | 2019-07-18 10:46 | PCM48HPAN ---
Post Anesthesia Note - EVALUATION WITHIN 48HRS OF ANESTHETIC Vital Signs in Normal Range: Yes Patient Participated in Evaluation: No (intubated, sedated) Respiratory Function Stable: Yes Airway Patent: Yes Cardiovascular Function Stable: Yes Hydration Status Stable: Yes Pain Control Satisfactory: Yes (fentanyl gtt) Nausea and Vomiting Control Satisfactory: Yes Mental Status Recovered: Yes (per RN) Vital Signs: Last Vital Signs Temp 37.5 C 07/18/19 09:00 Pulse 112 H 07/18/19 09:00 Resp 15 07/18/19 09:00 BP 107/66 07/18/19 09:00 Pulse Ox 99 07/18/19 10:10
[2019-07-18] MEDS: LORazepam 2 MG/ML SDV IVPUSH PRN ×2 (13:46→20:48)
[2019-07-18] MEDS: diphenhydrAMINE 50 MG/ML SDV IVPUSH PRN ×2 (13:46→19:32)
[2019-07-18] MEDS: fentaNYL 100 MCG/2 ML SDV IVPUSH PRN ×4 (14:26→22:09)
--- NOTE | 2019-07-18 16:04 | CR ---
Chest: Portable view of the chest was obtained. Comparison: Prior chest CT performed earlier on the same day. Heart size and mediastinum are normal. Lungs are clear. Endotracheal tube is seen lying between clavicle and rod in satisfactory position. Tip of nasogastric tube is slightly past the gastroesophageal junction. Impression: 1. Tip of nasogastric tube slightly past the gastroesophageal junction. 2. Satisfactory position of endotracheal tube. 3. Nothing acute is otherwise seen on portable chest x-ray. Diagnostic code #3
--- NOTE | 2019-07-18 16:06 | CR ---
Chest: Portable view of the chest was obtained. Comparison: Previous chest x-ray performed earlier on the same day (09:51 PM). Heart size and mediastinum are normal. Lungs are clear. Tip of endotracheal tube lies at the lower level of the clavicles in satisfactory position. Nasogastric tube courses off the inferior edge of the film into the stomach. Lungs remain clear. Bony structures are grossly intact. Right jugular line is now seen with tip lying near the junction of the right atrial and superior vena cava. Impression: 1. Tip of right jugular line lies at the junction of superior vena cava and right atrium. 2. Tip of nasogastric tube courses off the inferior edge of film. 3. Satisfactory position of endotracheal tube. 4. Nothing acute is otherwise seen on portable chest x-ray. Diagnostic code #2
[2019-07-18] MEDS ORDERED: Magnesium Sulfate/Water 4 GM in Premix Bag 1 BAG IV ONE (16:30)
[2019-07-18] MEDS ORDERED: Pantoprazole 40 MG Vial ONE (19:28)
[2019-07-18] MEDS ORDERED: Pantoprazole 40 MG in Sodium Chloride 0.9% 100 ML IV SCH (21:00)
[2019-07-18] MEDS ORDERED: cefTAZidime Pentahydrate 2 GM in Sodium Chloride 0.9% 50 ML IV SCH (22:00)
[2019-07-19] MEDS: fentaNYL 100 MCG/2 ML SDV IVPUSH PRN ×3 (00:15→20:15)
[2019-07-19] MEDS: diphenhydrAMINE 50 MG/ML SDV IVPUSH PRN (01:36)
[2019-07-19] MEDS: Acetaminophen 325 MG/10.15 ML ML PO SCH ×3 (04:09→20:38)
[2019-07-19] MEDS: Lactated Ringers 1,000 ML IV SCH (08:45)
--- NOTE | 2019-07-19 09:29 | PCM.SN ---
- Free Text/Narrative Note: Interval history Post op day 2 s/p ex lap and small bowel resection for intussusception with ischemia. Extubated yesterday without issue. AF-VSS, pain improved. Making adequate urine. Patient removed NG tube this morning; output had been 100 cc/d. No flatus. Transfused 2 u pRBC yesterday AM for Hgb 7.7 with initial adequate response. Hgb down from 9.5 yesterday AM to 7.7 g/dL this AM. Holding heparin. Patient has no complaints this morning. Exam Gen:Awake and alert, no distress HEENT:No scleral icterus R IJ CVC in place Resp:Breathing comfortably on room air CV:RRR with palpable radial pulse GI:Abd soft, appropriately tender, midline incision clean and dry with giles in place :Bo catheter in place with ample light yellow urine in bag MSK:Moves all extremities freely Skin: no significant edema Assessment Overall doing well postoperatively. Awaiting return of bowel function. Some concern for ongoing hemorrhage, possibly intraluminal at new anastomotic site. Plan: -d/c CVC -d/c NG tube and trial clear liquids -remove bo catheter -activity as tolerated/ up out of bed ambulating -SCDs at all times when in bed; hold heparin for now due to concern for bleeding -repeat CBC and CMP this afternoon at 4 pm -social worker masters consult
[2019-07-19] MEDS: oxyCODONE 5 MG Tab PO PRN ×2 (13:27→17:43)
[2019-07-19] MEDS: Heparin Sodium 5,000 Units/ML Vial SUBCUT SCH (17:43)
[2019-07-19] MEDS: D5 1/2 NS w/ 20 mEq/L KCl 1,000 ML IV SCH (18:40)
--- NOTE | 2019-07-19 19:32 | PCM.SN ---
- Free Text/Narrative Note: in room at 1802 start IV X2 one each wrist #20 ga. left #22 ga. right good blood return good flush dressing applied out of room at 1815
[2019-07-19] MEDS ORDERED: Sodium Chloride 0.9% 250 ML ONE (20:01)
[2019-07-20] MEDS: Heparin Sodium 5,000 Units/ML Vial SUBCUT SCH ×3 (01:03→17:31)
[2019-07-20] MEDS: D5 1/2 NS w/ 20 mEq/L KCl 1,000 ML IV SCH ×3 (04:07→23:39)
[2019-07-20] MEDS: Acetaminophen 325 MG/10.15 ML ML PO SCH (04:07)
[2019-07-20] MEDS: oxyCODONE 5 MG Tab PO PRN ×4 (04:08→17:30)
[2019-07-20] MEDS: fentaNYL 100 MCG/2 ML SDV IVPUSH PRN ×4 (04:21→21:31)
[2019-07-20] MEDS ORDERED: Bisacodyl 10 MG Supp RECTAL ONE (09:15)
[2019-07-20] MEDS: Ondansetron 4 MG Tab.DIS PO PRN ×2 (11:58→17:50)
[2019-07-20] MEDS: Acetaminophen 325 MG Tab PO SCH ×2 (13:20→21:30)
[2019-07-20] MEDS: Topiramate 25 MG Tab PO SCH ×2 (16:05→21:29)
--- NOTE | 2019-07-20 20:51 | PCM.SN ---
- Free Text/Narrative Note: Subjective: pain controlled, ambulating some, reports flatus. Tolerating small amount of oral intake. Objective: Vitals in normal range Gen: no distress HEENT: no icterus Pulm: comfortable on room air CV: RRR Abd: distended, tympanitic, soft, appropriately tender, incision site clean dry and intact MSK: full range of motion Skin: no edema Neuro: motor and sensory function grossly intact Assessment: POD 3 s/p laparotomy and small bowel resection for intussusception with strangulation. Doing well postoperatively. Patient reports flatus, and is tolerating a diet, though still distended. Plan: Consults placed today for psychiatry and for loan officer assessment. Dulcolax suppository ordered. Plan to wean off IV narcotics as PO intake increases Pulmonary toilet, needs out of bed ambulating with assistance. PT consulted. Reg diet monitor urinary output 5000 u heparin SC DVT ppx Disposition pending, social work involved.
[2019-07-20] MEDS: Mirtazapine 30 MG Tab PO SCH (21:29)
[2019-07-21] MEDS: fentaNYL 100 MCG/2 ML SDV IVPUSH PRN ×2 (02:28→12:06)
[2019-07-21] MEDS: Heparin Sodium 5,000 Units/ML Vial SUBCUT SCH ×3 (02:28→18:04)
[2019-07-21] MEDS: oxyCODONE 5 MG Tab PO PRN ×3 (04:50→16:20)
[2019-07-21] MEDS: Acetaminophen 325 MG Tab PO SCH ×3 (04:50→20:21)
--- NOTE | 2019-07-21 07:28 | PCM.SN ---
- Free Text/Narrative Note: Subjective: reports poor sleep overnight, having more abdominal pain. Still passing flatus, no vomiting, tolerating PO, making plenty of urine. Objective: VSS Gen: no distress HEENT: no icterus Pulm: comfortable on room air CV: RRR Abd: soft, distended, tympanitic, appropriately tender, incision site clean, dry , intact Assessment: POD 4 s/p ex lap for intussusception with small bowel strangulation in patient with gastric bypass. Doing well postoperatively, with slowly resolving ileus. Seen by social media sr strategy manager and psychiatry yesterday. Plan: Decrease IVF to 30 mL/hr (KVO) encouraged continued ambulation, going slow with PO intake until abdominal distention resolves Disposition in progress- anticipate discharge from hospital once ileus has definitively resolved within the next few days.
[2019-07-21] MEDS: Topiramate 25 MG Tab PO SCH ×2 (09:36→20:22)
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
[2019-07-21] MEDS: D5 1/2 NS w/ 20 mEq/L KCl 1,000 ML IV SCH (11:19)
[2019-07-21] MEDS ORDERED: Calcium Carbonate 500 MG Tab.Chew PO PRN (19:55)
[2019-07-21] MEDS: Mirtazapine 30 MG Tab PO SCH (20:22)
[2019-07-22] MEDS: oxyCODONE 5 MG Tab PO PRN ×3 (00:23→16:19)
[2019-07-22] MEDS: Heparin Sodium 5,000 Units/ML Vial SUBCUT SCH ×3 (02:22→17:55)
[2019-07-22] MEDS: Ibuprofen 400 MG Tab PO PRN ×3 (02:28→19:53)
[2019-07-22] MEDS: Acetaminophen 325 MG Tab PO SCH ×3 (04:19→21:35)
[2019-07-22] MEDS: Prenatal Multivitamin with Calcium/Folic Acid/Iron Tab PO SCH (09:20)
[2019-07-22] MEDS: D5 1/2 NS w/ 20 mEq/L KCl 1,000 ML IV SCH (09:21)
[2019-07-22] MEDS: Topiramate 25 MG Tab PO SCH ×2 (09:21→21:35)
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
[2019-07-22] MEDS ORDERED: Sodium Chloride 0.9% 10 ML Syringe FLUSH PRN (12:19)
[2019-07-22] MEDS ORDERED: oxyCODONE 5 MG Tab PO PRN (12:20)
[2019-07-22] MEDS: ClonazePAM 1 MG Tab PO SCH (21:34)
[2019-07-22] MEDS: Docusate Sodium 100 MG Cap PO SCH (21:35)
[2019-07-22] MEDS: Pantoprazole 40 MG Tab.CR PO SCH (21:36)
[2019-07-22] MEDS: Mirtazapine 30 MG Tab PO SCH (21:36)
[2019-07-22] MEDS: Polyethylene Glycol 3350 Powder 17 GM Packet PO SCH (21:37)
[2019-07-23] MEDS: Ibuprofen 400 MG Tab PO PRN ×2 (02:43→11:11)
[2019-07-23] MEDS: Heparin Sodium 5,000 Units/ML Vial SUBCUT SCH ×2 (02:44→09:41)
[2019-07-23] MEDS: Acetaminophen 325 MG Tab PO SCH ×2 (04:55→12:22)
[2019-07-23] MEDS: Pantoprazole 40 MG Tab.CR PO SCH ×2 (04:56→09:40)
[2019-07-23] MEDS: Topiramate 25 MG Tab PO SCH (09:41)
[2019-07-23] MEDS: Prenatal Multivitamin with Calcium/Folic Acid/Iron Tab PO SCH (09:41)
[2019-07-23] MEDS: Docusate Sodium 100 MG Cap PO SCH (09:41)
[2019-07-23] MEDS: Polyethylene Glycol 3350 Powder 17 GM Packet PO SCH (09:41)
[2019-07-23] MEDS ORDERED: ClonazePAM 0.5 MG Tab PO SCH (09:45)
[2019-07-23 10:07] VITALS: BP 129/75; PULSE 101
[2019-07-23] MEDS: ClonazePAM 1 MG Tab PO SCH (10:40)
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
== END 2019-07-23 13:40 | DRG 329 ==
LOC: JD.ED 09:41 → JD.SDS 18:07 → EEVIPCON 20:55 → JD.ICU 20:55 → JD.MS 07-19 06:17
PROVIDERS: ADMIT Surgery; ATTEND Surgery
PROC: 0DB84ZZ Excision of Small Intestine, Percutaneous Endoscopic Approach (ICD-10-PCS; principal; 2019-07-17)
PROC: 0BH17EZ Insertion of Endotracheal Airway into Trachea, Via Natural or Artificial Opening (ICD-10-PCS; 2019-07-17)
PROC: 5A1935Z Respiratory Ventilation, Less than 24 Consecutive Hours (ICD-10-PCS; 2019-07-17)
PROC: 02HV33Z Insertion of Infusion Device into Superior Vena Cava, Percutaneous Approach (ICD-10-PCS; 2019-07-17)
PROC: B548ZZA Ultrasonography of Superior Vena Cava, Guidance (ICD-10-PCS; 2019-07-17)
PROC: 039Y3ZZ Drainage of Upper Artery, Percutaneous Approach (ICD-10-PCS; 2019-07-17)
PROC: 0D9670Z Drainage of Stomach with Drainage Device, Via Natural or Artificial Opening (ICD-10-PCS; 2019-07-17)
PROC: 30233N1 Transfusion of Nonautologous Red Blood Cells into Peripheral Vein, Percutaneous Approach (ICD-10-PCS; 2019-07-18)
DX: K94.19 Other complications of enterostomy (principal); J96.00 Acute respiratory failure, unspecified whether with hypoxia or hypercapnia; K55.029 Acute infarction of small intestine, extent unspecified; K56.1 Intussusception; F31.60 Bipolar disorder, current episode mixed, unspecified; D62 Acute posthemorrhagic anemia; T74.21XA Adult sexual abuse, confirmed, initial encounter; T74.11XA Adult physical abuse, confirmed, initial encounter; K56.7 Ileus, unspecified; T40.695A Adverse effect of other narcotics, initial encounter; T42.4X5A Adverse effect of benzodiazepines, initial encounter; J45.909 Unspecified asthma, uncomplicated; E78.00 Pure hypercholesterolemia, unspecified; F98.8 Other specified behavioral and emotional disorders with onset usually occurring in childhood and adolescence; F41.9 Anxiety disorder, unspecified; F43.10 Post-traumatic stress disorder, unspecified; D50.9 Iron deficiency anemia, unspecified; E87.6 Hypokalemia; D64.9 Anemia, unspecified; K21.9 Gastro-esophageal reflux disease without esophagitis; F19.10 Other psychoactive substance abuse, uncomplicated; E83.42 Hypomagnesemia; T65.91XA Toxic effect of unspecified substance, accidental (unintentional), initial encounter; R45.1 Restlessness and agitation; Z98.84 Bariatric surgery status; Z79.899 Other long term (current) drug therapy; Z88.5 Allergy status to narcotic agent; Z88.8 Allergy status to other drugs, medicaments and biological substances; Z87.440 Personal history of urinary (tract) infections; Z90.49 Acquired absence of other specified parts of digestive tract; Z98.51 Tubal ligation status; Z87.891 Personal history of nicotine dependence
CPT/HCPCS: 00840; 36415; 36430; 36600; 70450; 70450-26; 70486; 70486-26; 71045; 71045-26; 71260; 71260-26; 74177; 74177-26; 80048; 80053; 80306; 82248; 82803; 83605; 83735; 84100; 84484; 84703; 85025; 86850; 86900; 86901; 86922; 93005; 93010; 94002; 96361; 96374; 96375; 96376; 97116-GP; 97161-GP; 99283; 99285-25; A9270-GY; C9113; G0480; J0694; J0713; J1170; J1200; J1644; J2001; J2060; J2250; J2405; J2704; J3010; J3475; J3480; J3490; J7030; J7040; J7042; J7050; J7120; P9016; Q3014; Q9967

== ENCOUNTER 2019-07-24 11:41 | Inpatient (IN) | payer MEDICAID ==
[2019-07-24] MEDS ORDERED: Sodium Chloride 0.9% 10 ML Syringe FLUSH PRN (12:23)
[2019-07-24] MEDS ORDERED: Famotidine 20 MG Tab PO ONE (12:23)
[2019-07-24] MEDS ORDERED: Ondansetron 4 MG/2 ML SDV IVPUSH ONE (12:23)
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
[2019-07-24] MEDS ORDERED: Ketorolac 30 MG/ML SDV IVPUSH SCH (12:30)
[2019-07-24] MEDS ORDERED: Sodium Chloride 0.9% 1,000 ML IV SCH (12:30)
[2019-07-24] MEDS ORDERED: Metoclopramide 10 MG/2 ML SDV IVPUSH ONE (14:08)
[2019-07-24] MEDS ORDERED: HYDROmorphone 0.5 MG/0.5 ML Syringe IVPUSH ONE ×2 (14:08→16:45)
[2019-07-24] MEDS ORDERED: Sodium Chloride 0.9% 10 ML Syringe FLUSH ONE (14:57)
[2019-07-24] MEDS ORDERED: Diatrizoate Meglumine/Diatrizoate Sodium 37% 120 ML Bottle PO ONE (14:57)
[2019-07-24] MEDS ORDERED: Iopamidol 612 MG/ML 100 ML Bottle IVPUSH ONE (14:57)
[2019-07-24] MEDS ORDERED: LORazepam 2 MG/ML SDV IVPUSH ONE (15:38)
[2019-07-24] MEDS ORDERED: Lactated Ringers 1,000 ML IV ONE ×3 (15:39→20:28)
[2019-07-24] MEDS ORDERED: Acetaminophen 325 MG Tab ONE (15:48)
--- NOTE | 2019-07-24 16:04 | CT ---
CT abdomen and pelvis Technique: Multiple axial sections were obtained from above the dome of the diaphragm inferiorly through the pubic symphysis. Intravenous and oral contrast was utilized. Comparison: Prior CT abdomen and pelvis exam of 07/17/19. Findings: Dilated jejunal loops are seen. There is some narrowing noted at an area of anastomotic sutures but dilatation continues distal to this area point of narrowing with the dilated of bowel occurring down to the pelvis. These findings are suspicious for small bowel obstruction. Dilated small bowel appears somewhat too prominent for postop ileus. Visualized lung bases show nothing acute. Liver shows no focal abnormality. Spleen appears within normal limits. Contrast reflux is seen into the esophagus. Interval surgery from prior study is seen. Pancreas shows no discrete abnormality. Surgical clips are seen from prior cholecystectomy. Kidneys show symmetric contrast enhancement. Small cyst is noted within the left kidney. No retroperitoneal adenopathy is seen. Small amount of free fluid seen within the pelvis. No pelvic mass or adenopathy is seen. Increased density and slight amount of fluid is seen within the incision site which is felt to be normal postop fluid change. Skin giles are noted within the anterior abdominal wall. Bone window settings were reviewed which appear within normal limits for the patient's age. Impression: 1. Interval surgery from prior study. 2. Dilated jejunal loops into the pelvis. Point of transition appears to be within the pelvis. Findings are suspicious for small bowel obstruction. Dilated loops appears somewhat more than expected for a small bowel postop ileus. 3. Slight postoperative change within the anterior abdominal wall. 4. Small amount of fluid within the pelvis most likely postoperative. Diagnostic code #3
[2019-07-24] MEDS ORDERED: fentaNYL 100 MCG/2 ML SDV IVPUSH ONE (20:27)
[2019-07-24] MEDS ORDERED: oxyCODONE 5 MG Tab PO PRN (21:16)
[2019-07-24] MEDS ORDERED: Amitriptyline 25 MG Tab PO ONE (21:33)
[2019-07-24] MEDS ORDERED: valACYclovir 1,000 MG Tab PO PRN (21:38)
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
[2019-07-24] MEDS: Heparin Sodium 5,000 Units/ML Vial SUBCUT SCH (22:30)
[2019-07-24] MEDS: Acetaminophen 325 MG/10.15 ML ML PO SCH (22:31)
[2019-07-24] MEDS: Ketorolac 15 MG/ML SDV IVPUSH SCH (22:31)
[2019-07-24] MEDS: ClonazePAM 0.5 MG Tab PO SCH (22:33)
[2019-07-24] MEDS: Polyethylene Glycol 3350 Powder 17 GM Packet PO SCH (22:33)
[2019-07-24] MEDS: Lactated Ringers 1,000 ML IV SCH (22:38)
[2019-07-25] MEDS: Ketorolac 15 MG/ML SDV IVPUSH SCH ×3 (04:05→23:25)
[2019-07-25] MEDS: Acetaminophen 325 MG/10.15 ML ML PO SCH ×2 (04:06→05:11)
[2019-07-25] MEDS: Heparin Sodium 5,000 Units/ML Vial SUBCUT SCH ×3 (04:06→21:12)
[2019-07-25] MEDS ORDERED: traMADol 50 MG Tab PO ONE (06:59)
--- NOTE | 2019-07-25 07:50 | PCM.SN ---
- Free Text/Narrative Note: S: pain not controlled overnight. report of large amount of serosanguinous drainage from wound with some purulence at wound site. O: POD 8. AF_VSS, WBC 17. Campbell removed and wound probed, with small bowel visible. A: fascial dehiscence. Timeline and patient factors suggest etiology likely more related to malnutrition and infection rather than technical error, thus I worry about the success of re-attempt at primary closure. P: Return to operating room for washout and closure with absorbable mesh, if available. If not, will plan for packing. Regardless, I feel that at this point the patient warrants a higher level of care than what is available here in [place].
[2019-07-25] MEDS ORDERED: Piperacillin/Tazobactam 4.5 GM in Sodium Chloride 0.9% 100 ML IV ONE (08:00)
[2019-07-25] MEDS: Lactated Ringers 1,000 ML IV SCH ×3 (08:01→15:08)
[2019-07-25] MEDS ORDERED: Bupivacaine 0.5% 30 ML SDV ONE (08:31)
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
[2019-07-25] MEDS ORDERED: Albuterol 0.083% 2.5 MG/3 ML Neb Soln NEB ONE (08:56)
[2019-07-25] MEDS ORDERED: Prenatal Multivitamin with Calcium/Folic Acid/Iron Tab PO SCH ×2 (09:00→12:00)
[2019-07-25] MEDS ORDERED: Lidocaine 1% 6 ML ONE (09:08)
[2019-07-25] MEDS ORDERED: Ondansetron 4 MG/2 ML SDV ONE (09:08)
[2019-07-25] MEDS ORDERED: Dexamethasone 4 MG/ML 5 ML MDV ONE (09:08)
[2019-07-25] MEDS ORDERED: Lactated Ringers 1,000 ML ONE ×2 (09:08→09:58)
[2019-07-25] MEDS ORDERED: Rocuronium 50 MG/5 ML Vial ONE ×2 (09:08→09:50)
[2019-07-25] MEDS ORDERED: HYDROmorphone 0.5 MG/0.5 ML Syringe ONE ×2 (09:08→10:43)
[2019-07-25] MEDS ORDERED: fentaNYL 250 MCG/5 ML SDV ONE (09:09)
[2019-07-25] MEDS ORDERED: Midazolam 1 MG/ML 2 ML SDV ONE (09:09)
[2019-07-25] MEDS ORDERED: Propofol 200 MG/20 ML SDV ONE (09:09)
[2019-07-25] MEDS ORDERED: diphenhydrAMINE 50 MG/ML SDV IVPUSH PRN (09:16)
[2019-07-25] MEDS ORDERED: Midazolam 1 MG/ML 2 ML SDV IVPUSH PRN (09:16)
[2019-07-25] MEDS ORDERED: Ondansetron 4 MG/2 ML SDV IVPUSH PRN (09:16)
[2019-07-25] MEDS ORDERED: ePHEDrine 50 MG/ML SDV IVPUSH PRN (09:16)
[2019-07-25] MEDS ORDERED: Albuterol 0.083% 2.5 MG/3 ML Neb Soln NEB PRN (09:16)
[2019-07-25] MEDS ORDERED: Phenylephrine/Normal Saline 100 MCG/ML 10 ML Syringe ONE (09:25)
[2019-07-25] MEDS ORDERED: Phenylephrine 1 MG in Sodium Chloride 0.9% 10 ML IV SCH (09:30)
[2019-07-25] MEDS ORDERED: Neostigmine Methylsulfate 1 MG/ML 5 ML Syringe ONE (09:58)
[2019-07-25] MEDS ORDERED: Ketorolac 30 MG/ML SDV ONE (10:47)
[2019-07-25] MEDS: Polyethylene Glycol 3350 Powder 17 GM Packet PO SCH ×2 (11:28→21:14)
[2019-07-25] MEDS: Topiramate 25 MG Tab PO SCH ×2 (11:33→21:15)
[2019-07-25] MEDS: ClonazePAM 0.5 MG Tab PO SCH ×3 (11:33→21:13)
[2019-07-25] MEDS: Docusate Sodium 100 MG Cap PO SCH ×2 (11:34→21:15)
--- NOTE | 2019-07-25 11:37 | PCM.POSTAN ---
POST ANESTHESIA ASSESSMENT - MENTAL STATUS Mental Status: Alert - VITAL SIGNS Vital Signs: Last Vital Signs Temp 99.6 07/25/19 1122 Pulse 104 07/25/19 1122 Resp 14 07/25/19 1122 BP 111/68 07/25/19 1122 Pulse Ox 100 07/25/19 1122 - RESPIRATORY Respiratory Status: Respiratory Rate WNL, Airway Patent, O2 Saturation Stable, Supplemental Oxygen - CARDIOVASCULAR CV Status: Pulse Rate WNL, Blood Pressure Stable - GASTROINTESTINAL GI Status: No Symptoms - POST OP HYDRATION Hydration Status: Adequate & Stable
[2019-07-25] MEDS: fentaNYL 100 MCG/2 ML SDV IVPUSH PRN ×2 (11:58→12:20)
--- NOTE | 2019-07-25 12:05 | PCM.PRNOTE ---
- Free Text/Narrative Note: Operative Report Surgeon: Brent Schmidt Diagnosis: post-operative fascial dehiscence Operation: abdominal washout, gastrostomy tube placement, and closure with biologic absorbable mesh and wound vac Abx: zosyn EBL: minimal Complications: none Findings: complete fascial dehiscence with poor quality friable tissue. Small bowel appeared healthy and without obstruction. Gastrostomy stammed and placed in remnant stomach. Biologic absorbable mesh 22x7 cm inlay for closure. Wound vac placed. Detailed report: The patient transferred from the floor to OR and underwent general endotracheal anesthesia. The abdomen was prepped and draped in sterile fashion after timeout and placement of a bo catheter. The wound was opened completely and the fascial stitch had pulled through the ratty, friable fascia. This was cut out and the small bowel inspected. Bowel appeared healthy and not obstructed, the anastomosis appeared intact. The abdominal cavity was irrigated and suctioned thoroughly. A G-J tube was used for a gastrostomy in the remnant stomach (as it was what was available- the J portion of the tube was cut off with scissors prior to placement). The tube was brought through the abdominal wall at the left upper quadrant with a Tonsil clamp, and a small gastrostomy was made with the electrode along the greater curve anteriorly. The g-tube was fed into the stomach and biliary contents were aspirated. The balloon was inflated with 8 cc of sterile water. 4-0 silk Brooke sutures were placed to tack the gastrostomy to the anterior abdominal wall. The tube was pulled back until snug and the bumper placed at the skin surface to secure the tube. Two pieces of biologic absorbable mesh, measuring 8 x 12 cm and 10 x 7 cm, were sewn together and then cut to size to bridge the fascial opening. Running 1 Vicryl was used to secure the mesh along the edge of fascia circumferentially. A wound vac was then placed into the wound and suction applied with good seal. The patient tolerated the procedure well and was extubated in the operating room prior to transfer to the wards. Brent Schmidt MD General Surgery
[2019-07-25] MEDS: Pantoprazole 40 MG Tab.CR PO SCH ×2 (13:19→21:14)
[2019-07-25] MEDS ORDERED: Ketorolac 15 MG/ML SDV IVPUSH SCH (14:00)
[2019-07-25] MEDS: HYDROmorphone 1 MG/ML Syringe IVPUSH PRN ×3 (14:56→23:24)
[2019-07-25] MEDS: Piperacillin/Tazobactam 4.5 GM in Sodium Chloride 0.9% 100 ML IV SCH ×2 (15:05→23:25)
[2019-07-25] MEDS ORDERED: Acetaminophen 325 MG Tab PO ONE (15:38)
[2019-07-25] MEDS: Prenatal Multivitamin with Calcium/Folic Acid/Iron Tab PO SCH (19:45)
[2019-07-25] MEDS: Sodium Chloride 0.9% 1,000 ML IV SCH (21:06)
[2019-07-25] MEDS: Amitriptyline 25 MG Tab PO SCH (21:13)
[2019-07-25] MEDS: Mirtazapine 30 MG Tab PO SCH (21:15)
[2019-07-26] MEDS: HYDROmorphone 1 MG/ML Syringe IVPUSH PRN ×4 (03:29→17:45)
--- NOTE | 2019-07-26 04:31 | PCM48HPAN ---
Post Anesthesia Note - EVALUATION WITHIN 48HRS OF ANESTHETIC Vital Signs in Normal Range: Yes Patient Participated in Evaluation: Yes Respiratory Function Stable: Yes Airway Patent: Yes Cardiovascular Function Stable: Yes Hydration Status Stable: Yes Pain Control Satisfactory: Yes Nausea and Vomiting Control Satisfactory: Yes Mental Status Recovered: Yes Vital Signs: Last Vital Signs Temp 37.2 C 07/26/19 00:00 Pulse 95 07/26/19 00:00 Resp 12 07/26/19 00:00 BP 110/68 07/26/19 00:00 Pulse Ox 98 07/26/19 00:00 - COMMENTS/OBSERVATIONS Free Text/Narrative:: Patient resting quietly. Anesthesia did not disturb or awaken patient. Nursing staff states patient is doing well, pain control tolerable.
[2019-07-26] MEDS: Ketorolac 15 MG/ML SDV IVPUSH SCH ×4 (05:58→23:34)
[2019-07-26] MEDS: Heparin Sodium 5,000 Units/ML Vial SUBCUT SCH ×3 (05:58→23:32)
[2019-07-26] MEDS: Sodium Chloride 0.9% 1,000 ML IV SCH (07:01)
[2019-07-26] MEDS: Piperacillin/Tazobactam 4.5 GM in Sodium Chloride 0.9% 100 ML IV SCH ×3 (08:47→23:36)
[2019-07-26] MEDS: ClonazePAM 0.5 MG Tab PO SCH ×2 (08:51→23:33)
[2019-07-26] MEDS: Docusate Sodium 100 MG Cap PO SCH ×2 (08:52→23:31)
[2019-07-26] MEDS: Topiramate 25 MG Tab PO SCH ×2 (08:52→23:34)
[2019-07-26] MEDS: Pantoprazole 40 MG Tab.CR PO SCH ×2 (08:53→23:33)
[2019-07-26] MEDS: Polyethylene Glycol 3350 Powder 17 GM Packet PO SCH ×2 (08:54→23:33)
[2019-07-26] MEDS: Prenatal Multivitamin with Calcium/Folic Acid/Iron Tab PO SCH (09:01)
[2019-07-26] MEDS: D5 1/2 NS w/ 20 mEq/L KCl 1,000 ML IV SCH ×2 (09:09→18:55)
[2019-07-26] MEDS ORDERED: Bisacodyl 10 MG Supp RECTAL ONE (09:13)
--- NOTE | 2019-07-26 09:21 | PCM.SN ---
- Free Text/Narrative Note: S: pain manageable. No flatus. O: AF-sinus tachycardia with normal BP and good urine output (> 30 cc/hr). G tube output <200 cc. Wound vac output minimal serosanguinous. Gen:Awake and alert, no distress Pulm: comfortable on room air CV: palpable radial pulses GI: Abd distended, soft, appropriately tender, with wound vac dressing holding suction. : Bo catheter in place with clear yellow output MSK: Moves all extremities freely Neuro: motor and sensory function grossly intact Skin: warm, dry A: POD 1 s/p takeback for abdominal washout and closure of dehiscence with biologic mesh and placement of gastrostomy tube in gastric remnant. No acute events overnight. Plan: -continue current pain regimen -IS, OOB with assistance -switch from NS to maintenance D5 1/2 w 20 mEQ KCL @ 100 cc/hr -clears, with trophic enteral feeds via G tube Jevity 1.2 kathleen @ 10 cc/hr continuous -plan for wound vac change tomorrow -remove bo catheter, f/u trial of void -continue zosyn for now; WBC still elevated at 17,00 -heparin, SCD for DVT ppx -case management consult -PT eval later this week
[2019-07-26] MEDS ORDERED: Lactated Ringers 1,000 ML ONE (19:31)
[2019-07-26] MEDS ORDERED: Lidocaine 1% 6 ML ONE (20:01)
[2019-07-26] MEDS ORDERED: Propofol 200 MG/20 ML SDV ONE (20:01)
[2019-07-26] MEDS ORDERED: Rocuronium 50 MG/5 ML Vial ONE (20:01)
[2019-07-26] MEDS ORDERED: Ondansetron 4 MG/2 ML SDV ONE (20:01)
[2019-07-26] MEDS ORDERED: Dexamethasone 4 MG/ML 5 ML MDV ONE (20:01)
[2019-07-26] MEDS ORDERED: Midazolam 1 MG/ML 2 ML SDV ONE (20:02)
[2019-07-26] MEDS ORDERED: fentaNYL 250 MCG/5 ML SDV ONE (20:02)
[2019-07-26] MEDS ORDERED: Bupivacaine 0.5% 30 ML SDV ONE (20:12)
[2019-07-26] MEDS ORDERED: Succinylcholine/Normal Saline 100 MG/5 ML Syringe ONE (20:23)
[2019-07-26] MEDS ORDERED: Phenylephrine/Normal Saline 100 MCG/ML 10 ML Syringe ONE (20:28)
[2019-07-26] MEDS ORDERED: ePHEDrine/Normal Saline 25 MG/5 ML Syringe ONE (20:32)
[2019-07-26] MEDS ORDERED: Neostigmine Methylsulfate 1 MG/ML 5 ML Syringe ONE (20:41)
[2019-07-26] MEDS ORDERED: Ondansetron 4 MG/2 ML SDV IVPUSH PRN (20:43)
[2019-07-26] MEDS ORDERED: Midazolam 1 MG/ML 2 ML SDV IVPUSH PRN (20:43)
[2019-07-26] MEDS ORDERED: Albuterol 0.083% 2.5 MG/3 ML Neb Soln NEB PRN (20:43)
[2019-07-26] MEDS ORDERED: diphenhydrAMINE 50 MG/ML SDV IVPUSH PRN (20:43)
[2019-07-26] MEDS ORDERED: HYDROmorphone 0.5 MG/0.5 ML Syringe IVPUSH PRN (20:43)
[2019-07-26] MEDS ORDERED: fentaNYL 100 MCG/2 ML SDV IVPUSH PRN (20:43)
[2019-07-26] MEDS ORDERED: ePHEDrine 50 MG/ML SDV IVPUSH PRN (20:43)
[2019-07-26] MEDS ORDERED: Phenylephrine 1 MG in Sodium Chloride 0.9% 10 ML IV SCH (20:45)
--- NOTE | 2019-07-26 21:40 | PCM.PRNOTE ---
- Free Text/Narrative Note: Surgeon: Brent Schmidt Operation: abdominal exploration, replacement of gastrostomy tube Complications: none EBL: minimal Abx: zosyn Findings: balloon on g-tube was deflated but intact. The medial geremias suture was cut and the g-tube replaced through the gastrostomy under direct visualization. 9 mL sterile water placed in balloon. Bile was aspirated from the g-tube. The tube was secured at the skin with 0 silk suture. Detailed report: The patient underwent general endotracheal anesthesia and timeout was performed. The abdomen and g-tube were prepped and draped in sterile fashion atfer removal of the wound vac. The superior half of the biologic mesh was grasped, elevated and cut with scissors. The abdomen was entered safely and incision extended enough to permit visualization of the stomach. The Bookwalter retractor was set up to aid with exposure. The medial Geremias suture was cut and the gastrostomy visualized. The g-tube was guided thrrough the abdominal wall with a clamp, and carefully fed back into the stomach. No resistance was met. The balloon, which had been confirmed to be intact prior to replacement, was inflated with 9 mL sterile water. Bile was aspirated from the tube confirming placement. The Geremias suture was replaced. The tube was secured at the skin with two anchoring silk sutures. The biologic mesh was closed with running 0 vicryl suture and a new wound vac dressing placed. The patient tolerated the operation well, was extubated in the OR and trasnferred back to the wards. Brent Schmidt MD General Surgery
--- NOTE | 2019-07-26 21:50 | PCM.POSTAN ---
POST ANESTHESIA ASSESSMENT - MENTAL STATUS Mental Status: Alert - VITAL SIGNS Vital Signs: Last Vital Signs Temp 99.0f 07/26/192132 Pulse 109 07/26/192132 Resp 8 07/26/192132 BP 120/68 07/26/192132 Pulse Ox 100 07/26/192132 - RESPIRATORY Respiratory Status: Respiratory Rate WNL, Airway Patent, O2 Saturation Stable, Supplemental Oxygen - CARDIOVASCULAR CV Status: Pulse Rate WNL, Blood Pressure Stable - GASTROINTESTINAL GI Status: No Symptoms - POST OP HYDRATION Hydration Status: Adequate & Stable
[2019-07-26] MEDS: Amitriptyline 25 MG Tab PO SCH (23:32)
[2019-07-26] MEDS: Mirtazapine 30 MG Tab PO SCH (23:34)
[2019-07-27] MEDS: Heparin Sodium 5,000 Units/ML Vial SUBCUT SCH ×3 (05:26→20:59)
[2019-07-27] MEDS: Ketorolac 15 MG/ML SDV IVPUSH SCH ×4 (05:26→22:32)
--- NOTE | 2019-07-27 07:34 | CT ---
CT abdomen Technique: Multiple axial sections were obtained from above the dome of the diaphragm inferiorly to the iliac crests. There is some oral contrast which being seen from patient's previous CT abdomen and pelvis study of 07/24/19. No new IV or oral contrast was given. Findings: Previous gastric surgery is noted. Gastrostomy tube is seen which lies outside the bowel. Previous abdominal surgery is seen with midline surgical incision. Small bilateral pleural effusions are seen with mild bibasilar atelectasis. Noncontrast appearance of the liver shows nothing acute. Spleen appears within normal limits. Adrenal glands show no nodule. Pancreas is within normal limits. Aorta shows no aneurysm. Kidneys show no hydronephrosis. Contrast is noted within portions of the colon. Small amount of free air is seen. Surgical clips are seen from prior cholecystectomy. Impression: 1. Gastrostomy tube is seen which lies outside the bowel. 2. Small amount of free air with previous abdominal surgery noted with midline surgical incision. 3. Small bilateral pleural effusions with mild bibasilar atelectasis. 4. Other findings believed to be incidental. Diagnostic code #3 MTDD
[2019-07-27] MEDS: HYDROmorphone 1 MG/ML Syringe IVPUSH PRN ×4 (07:35→21:30)
[2019-07-27] MEDS: Piperacillin/Tazobactam 4.5 GM in Sodium Chloride 0.9% 100 ML IV SCH ×3 (07:35→23:50)
[2019-07-27] MEDS: Simethicone 80 MG Tab.Chew PO PRN ×2 (09:11→20:56)
[2019-07-27] MEDS: Topiramate 25 MG Tab PO SCH ×2 (09:11→20:33)
[2019-07-27] MEDS: Polyethylene Glycol 3350 Powder 17 GM Packet PO SCH ×2 (09:11→20:31)
[2019-07-27] MEDS: Prenatal Multivitamin with Calcium/Folic Acid/Iron Tab PO SCH (09:11)
[2019-07-27] MEDS: ClonazePAM 0.5 MG Tab PO SCH ×2 (09:11→20:32)
[2019-07-27] MEDS: Pantoprazole 40 MG Tab.CR PO SCH ×2 (09:11→20:32)
[2019-07-27] MEDS: Docusate Sodium 100 MG Cap PO SCH ×2 (09:11→20:32)
[2019-07-27] MEDS: D5 1/2 NS w/ 20 mEq/L KCl 1,000 ML IV SCH ×2 (09:11→20:57)
--- NOTE | 2019-07-27 09:14 | PCM.SN ---
- Free Text/Narrative Note: S: Return to OR last night for dislodged g-tube; the balloon was found to be deflated but intact. Doing okay this morning, feels hungry. No flatus since OR. O: AF-VSS Labs significant for WBC 19,000 UOP > 50 cc/hr Gen: no distress, awake and alert HEENT: no icterus, no nasal cannula Pulm: normal work of breathing CV: palpable radial pulses Abd: soft, wound vac dressing intact with serosanguinous drainage, G-tube in place with minimal bilious drainage, abdominal binder in place : bo catheter in place with clear yellow urine MSK: moves all extremities freely Neuro: motor and sensory grossly intact Skin: warm, dry A: malnourished patient with hx GBP who presented with intussusception and small bowel ischemia requiring resection, complicated by dehiscence one week post-op requiring return to OR for closure with biologic mesh. Return to OR yesterday for displaced gastrostomy tube. Now faring okay. Plan: -continue current pain regimen with dilaudid prn, toradol and IV tylenol -OOB to chair today, plan for PT eval tomorrow -continue maintenance IVF at 100 cc/hr -begin trophic feeding via g tube 10 cc Jevity 1.2. Consult dietary. Ensure, Boost supplements at meal time. -regular diet trial -plan for bo removal tomorrow -continue zosyn abx until WBC starts to come down -heparin, scd dvt ppx
[2019-07-27] MEDS: Benzocaine/Cetylpyridinium/Menthol Lozenge MUCMEM PRN ×4 (12:36→22:32)
--- NOTE | 2019-07-27 16:28 | PCM48HPAN ---
Post Anesthesia Note - EVALUATION WITHIN 48HRS OF ANESTHETIC Vital Signs in Normal Range: Yes Patient Participated in Evaluation: Yes Respiratory Function Stable: Yes Airway Patent: Yes Cardiovascular Function Stable: Yes Hydration Status Stable: Yes Pain Control Satisfactory: Yes (giving pain meds) Nausea and Vomiting Control Satisfactory: Yes Mental Status Recovered: Yes (sitting up in chair) Vital Signs: Last Vital Signs Temp 97.2 F 07/27/19 12:29 Pulse 100 07/27/19 12:29 Resp 20 07/27/19 12:29 BP 119/63 07/27/19 12:29 Pulse Ox 99 07/27/19 12:29
[2019-07-27] MEDS ORDERED: Bisacodyl 10 MG Supp RECTAL PRN (17:31)
[2019-07-27] MEDS: Acetaminophen 325 MG Tab PO SCH (18:14)
[2019-07-27] MEDS: Mirtazapine 30 MG Tab PO SCH (20:32)
[2019-07-27] MEDS: Amitriptyline 25 MG Tab PO SCH (21:33)
[2019-07-28] MEDS: HYDROmorphone 1 MG/ML Syringe IVPUSH PRN ×5 (01:30→20:19)
[2019-07-28] MEDS: Acetaminophen 325 MG Tab PO SCH ×3 (01:30→17:35)
[2019-07-28] MEDS: Ondansetron 4 MG Tab.DIS PO PRN ×2 (01:43→08:47)
[2019-07-28] MEDS: Benzocaine/Cetylpyridinium/Menthol Lozenge MUCMEM PRN ×4 (04:07→20:17)
[2019-07-28] MEDS: Heparin Sodium 5,000 Units/ML Vial SUBCUT SCH ×3 (05:35→20:18)
[2019-07-28] MEDS ORDERED: D5 1/2 NS w/ 20 mEq/L KCl 1,000 ML IV SCH (08:15)
[2019-07-28] MEDS: Piperacillin/Tazobactam 4.5 GM in Sodium Chloride 0.9% 100 ML IV SCH (08:48)
[2019-07-28] MEDS: Simethicone 80 MG Tab.Chew PO PRN ×2 (09:28→20:17)
[2019-07-28] MEDS: Topiramate 25 MG Tab PO SCH ×2 (09:31→20:17)
[2019-07-28] MEDS: Docusate Sodium 100 MG Cap PO SCH ×2 (09:31→20:17)
[2019-07-28] MEDS: ClonazePAM 0.5 MG Tab PO SCH ×2 (09:31→20:17)
[2019-07-28] MEDS: Pantoprazole 40 MG Tab.CR PO SCH ×2 (09:31→20:18)
[2019-07-28] MEDS: Polyethylene Glycol 3350 Powder 17 GM Packet PO SCH ×2 (09:32→20:16)
--- NOTE | 2019-07-28 09:43 | PCM.SN ---
- Free Text/Narrative Note: S: got some rest overnight, doing okay this morning. Tolerated trophic feeds without issue. passing flatus. O: AF-VSS WBC up to 21 but % neutrophile coming down and sample numbers seem to indicated relative hemoconcentration. Gen: no distress HEENT: no icterus Pulm: comfortable on room air CV: RRR Abd: distended, soft, less tender, wound vac in place with serosanguinous output. G tube with enteral feeds infusing. : bo in place with clear yellow urine output Skin: no edema MSK: moves all extremities freely A: POD 2 s/p operative replacement of dislodged g-tube, doing well today. P: continue current pain regimen OOB to chair, IS, PT consult IVF KVO Switch to enteral feed Jevity 1.5 @ 20 cc/hr continuous, reg diet, dietary supplements remove bo catheter discontinue antibiotics heparin, scd for dvt ppx plan for wound vac change at bedside tomorrow
[2019-07-28] MEDS: Prenatal Multivitamin with Calcium/Folic Acid/Iron Tab PO SCH (10:42)
[2019-07-28] MEDS: Ketorolac 15 MG/ML SDV IVPUSH SCH ×3 (12:24→23:53)
[2019-07-28] MEDS ORDERED: Phenol 1.4% Oral Spray 177 ML Bottle MUCMEM PRN (19:39)
[2019-07-28] MEDS: Mirtazapine 30 MG Tab PO SCH (20:18)
[2019-07-28] MEDS: Amitriptyline 25 MG Tab PO SCH (20:18)
[2019-07-29] MEDS: HYDROmorphone 1 MG/ML Syringe IVPUSH PRN ×4 (00:33→13:25)
[2019-07-29] MEDS: Acetaminophen 325 MG Tab PO SCH ×2 (02:55→09:01)
[2019-07-29] MEDS: Heparin Sodium 5,000 Units/ML Vial SUBCUT SCH ×2 (04:34→13:24)
[2019-07-29] MEDS: Ketorolac 15 MG/ML SDV IVPUSH SCH ×2 (04:35→11:39)
[2019-07-29] MEDS: Polyethylene Glycol 3350 Powder 17 GM Packet PO SCH (08:28)
[2019-07-29] MEDS: Topiramate 25 MG Tab PO SCH (08:28)
[2019-07-29] MEDS: Prenatal Multivitamin with Calcium/Folic Acid/Iron Tab PO SCH (08:28)
[2019-07-29] MEDS: ClonazePAM 0.5 MG Tab PO SCH (08:28)
[2019-07-29] MEDS: Pantoprazole 40 MG Tab.CR PO SCH (08:28)
[2019-07-29] MEDS: Docusate Sodium 100 MG Cap PO SCH (08:28)
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
[2019-07-29] MEDS ORDERED: HYDROmorphone 1 MG/ML Syringe IVPUSH ONE (15:34)
[2019-07-29 15:44] VITALS: BP 109/63; PULSE 97
== END 2019-07-29 16:21 | DRG 920 ==
LOC: JD.ED 11:41 → SUPCPDRO 11:41 → JD.MS 18:15 → OBSVTOIN 21:16 → EEVIPCON 21:16 → JD.MS 21:19
PROVIDERS: ADMIT Surgery; ATTEND Surgery
PROC: 0D1 Gastrointestinal System, Bypass (ICD-10-PCS; principal; 2019-07-26)
DX: T81.32XA Disruption of internal operation (surgical) wound, not elsewhere classified, initial encounter (principal); K56.609 Unspecified intestinal obstruction, unspecified as to partial versus complete obstruction; E78.00 Pure hypercholesterolemia, unspecified; J45.909 Unspecified asthma, uncomplicated; K21.9 Gastro-esophageal reflux disease without esophagitis; F41.9 Anxiety disorder, unspecified; F32.9 Major depressive disorder, single episode, unspecified; Z88.5 Allergy status to narcotic agent
CPT/HCPCS: 00700; 00840; 36415; 74150; 74150-26; 74177; 74177-26; 80048; 80053; 80306; 81001; 81003; 85007; 85025; 85027; 86140; 87081; 87430; 94640; 96361; 96374; 96375; 97116-GP; 97162-GP; 99284; 99285-25; A9270-GY; B4088; C1781; J0131; J0330; J1100; J1170; J1644; J1885; J2001; J2060; J2250; J2370; J2405; J2543; J2704; J2710; J2765; J3010; J3480; J3490; J7030; J7040; J7050; J7120; Q9963; Q9967